=== PATIENT | female | born 1955 | race Caucasian/White ===

== ENCOUNTER 2021-06-18 08:43 | Outpatient (CLI) | payer MEDICARE, SELFPAY ==
--- NOTE | ~2021-06-18 | XR_ITS ---
XR ankle RT min 3V DATE: 06/18/2021 09:05 INDICATION: Posterior heel pain, bump TECHNIQUE: 3 views of right ankle COMPARISON: None FINDINGS: There is mild plantar and particularly prominent posterior calcaneal enthesopathy as well a s some calcifications of the distal Achilles tendon. There is overlying soft tissue swelling at the p osterior superior calcaneal area. No fracture or dislocation of the ankle or disruption of the ankle mortise. There is enthesopathy at the medial malleolus. No periosteal reaction or bone destruction is detected. IMPRESSION: Mild plantar and particularly prominent posterior calcaneal enthesopathy Distal Achilles tendon calcification and overlying soft tissue swelling, suggesting Achilles tendinit is Reviewed, dictated and finalized at location B. TIC ASSEMBLER IMPRESSION: Mild plantar and particularly prominent posterior calcaneal entheso terri Distal Achilles tendon calcification and overlying soft tissue swelling, sugges ting Achilles tendinitis
--- NOTE | ~2021-06-18 | XR_ITS ---
XR ankle LT min 3V DATE: 06/18/2021 09:05 INDICATION: Posterior heel pain TECHNIQUE: 3 views of left ankle COMPARISON: None FINDINGS: Mild plantar and very prominent posterior calcaneal enthesopathy. There is enthesopathy of the medial malleolus. No soft tissue swelling of the left ankle is evident. No left ankle fracture or dislocation or disrup tion of the left ankle mortise is noted. IMPRESSION: Plantar and particularly prominent posterior calcaneal enthesopathy Reviewed, dictated and finalized at location B. LESS SALES CONSULTANT
== END 2021-06-18 08:44 | disposition home or self-care (01) ==
LOC: CHSIMG 08:47
PROVIDERS: Visit Provider Orthopaedic Surgery
DX: M25.572 Pain in left ankle and joints of left foot (principal); M25.571 Pain in right ankle and joints of right foot
CPT/HCPCS: 73610

== ENCOUNTER 2021-07-03 02:00 | Outpatient (RCR) | payer MEDICARE, MEDICAID, SELFPAY ==
--- NOTE | 2021-07-03 15:11 | PTOPEVAL ---
Thank you for referring Lacy Toth to [facility].? The patient is scheduled to be seen for therapy? ____x/week for ___ weeks. Please review, sign, date and return this plan of care CAN. I agree with and certify that the following plan of care is medically necessary. Referring Physician Date Admitting Provider: Attending Provider: Stuart Mensah MD Referring Provider: *PT Outpatient Evaluation Start: 07/03/21 14:07 Freq: Status: Active Protocol: Document 07/03/21 14:07 ACR (Rec: 07/03/21 15:08 ACR [id number]) Therapy Assessment Status Assessment Status Assessment Status Evaluation Evaluation Information Problem Diagnosis plantar fascitis Onset 03/03/21 Subjective Information Patient states that she has Query Text:As Reported By Patient/ been dealing with plantar Family fascitis for about 3 years. She states that her most recent flare up was in February where she had a large knot. She states that she changed her diet and it has helped. She states that her doctor gave her exercises such as toe yoga, ankle ROM, gastroc stretching. She states that she has to do all of her stretches before she gets up because her feet are so painful. Patient states that walking, putting on shoes, driving for a period of time, steps ascending and descending , squatting, and getting on tip toes. She states that she has noticed that the outside of her shoes are worn and they use to never be like that. She has not been to therapy for this issue before just the exercises that the doctor gave her. Patient states that her goal for therapy is to walk without a limp Prior Level of Function Activity Level (Last 3 Months) Occupation retired Hand Dominance Right Activity of Daily Living Ability Independent Indoor/Home Mobility Independent Community Mobility Independent Stairs Ability Independent Functional Cognition (Planning, Shopping Independent , Taking M
--- NOTE | 2021-07-27 08:18 | PTOPEVAL ---
Thank you for referring Lacy Toth to [facility].? The patient is scheduled to be seen for therapy? ____x/week for ___ weeks. Please review, sign, date and return this plan of care CAN. I agree with and certify that the following plan of care is medically necessary. Referring Physician Date Admitting Provider: Attending Provider: Stuart Mensah MD Referring Provider: *PT Outpatient Evaluation Start: 07/03/21 14:07 Freq: Status: Active Protocol: Document 07/27/21 07:48 ACR (Rec: 07/27/21 08:16 ACR [id number]) Therapy Assessment Status Assessment Status Assessment Status Progress Evaluation Information Problem Diagnosis plantar fascitis Onset 03/03/21 Subjective Information Patient states that she is Query Text:As Reported By Patient/ doing a lot better since Family beginning therapy. She states she did a lot of walking yesterday and a lot of driving so her feet was so stiff, but once she did her stretches when she got home she felt fine. The patient believes the dry needling really helped her. Pain Assessment Timing of Pain Assessment Timing of Pain Assessment Pre-Treatment Pain Scale Pain Scale Used Numeric (1 - 10) Self Report Pain Assessment Left Foot/Feet Reported Pain Level 0 Greatest Pain Intensity 0 Right Foot/Feet Reported Pain Level 2 Greatest Pain Intensity 2 Pain Score Pain Score 0,2: Self Report Interventions Used Interventions Used By Clinicians Activity or ADL's,Electrical Stimulation,Exercise,Heat Lower Extremity Range of Motion Ankle/Foot Range of Motion Right Ankle Dorsiflexion With Knee Extension 2 Range of Motion - Active Ankle Plantarflexion Range of Motion - 50 Active Query Text: Gait Assessment Gait Assessment Additional Ambulation Comments Patient ambulates into the clinic with normal tennis shoes on. She ambulates with proper heel strike, but continues to have a quick heel off during mid stance due to lack of flexibility in the gastrocnemius. General Exercise General Exercises Exercise Description - slantboard stretch 1 minute Query Text:Record Sets, Reps, x 3 gastroc and soleus Resistance, and Position - tandem stance on foam x 2
--- NOTE | 2021-08-13 09:22 | PCPTNOTE ---
Mrs. Toth attended at total of 6 treatment sessions from 07/03/21 to 07/30/21. She has failed to return to the clinic. She will be discharged from our care at this time.
== END 2021-07-30 10:38 | disposition home or self-care (01) ==
LOC: CHSPT 02:00
PROVIDERS: Visit Provider Orthopaedic Surgery
DX: M76.62 Achilles tendinitis, left leg (principal); M76.61 Achilles tendinitis, right leg
CPT/HCPCS: 97014; 97110; 97140; 97161; G0283

== ENCOUNTER 2024-08-10 20:26 | Observation (INO) | payer MEDICARE, MEDICAID, SELFPAY ==
--- NOTE | ~2024-08-10 | CT_ITS ---
EXAMINATION: CTA chest PE protocol DATE: 08/11/2024 15:57 INDICATION: Hypoxia. Shortness of breath. TECHNIQUE: Computed tomography angiography (CTA) of the chest was performed with 100 mL Omnipaque-350 intravenous contrast timed to evaluate the pulmonary arteries. Coronal maximum intensity projection 3D-reconstructions were created by the technologist. Automated exposure control and iterative reconst ruction technique were employed. The dose-length product was 271.03 mGy-cm. COMPARISON: Chest single view 08/10/2024 FINDINGS: There are scattered areas of mild atelectasis in the lungs. There are scattered groundglass opacities in the lungs bilaterally. There are tree-in-bud opacities in right upper lobe. A calcified left lung nodule and calcified left hilar and mediastinal lymph nodes are consistent with old granul omatous disease. No pleural effusion. The heart size is normal. No pericardial effusion. There is mil d mediastinal lymphadenopathy, likely reactive. There is a 17 mm cyst in the liver. There is an 11 mm mass in left adrenal gland. There is no pulmonary embolus. There is a small sliding hiatal hernia. T here is mild thoracic spondylosis. IMPRESSION: 1. No pulmonary embolus. 2. Multifocal lung disease, consistent with pneumonia. 3. 11 mm mass in left adrenal gland. In the absence of known malignancy, this finding is likely an ad enoma. Reviewed, dictated and finalized at location A. CRIPTION CLERK IMPRESSION: 1. No pulmonary embolus. 2. Multifocal lung disease, consistent with pneumonia. 3. 11 mm mass in left adrenal gland. In the absence of known malignancy, this f inding is likely an adenoma.
--- NOTE | ~2024-08-10 | XR_ITS ---
CHEST RADIOGRAPH CLINICAL HISTORY: sob-low 02 stats . COMPARISON: None available TECHNIQUE: Single portable view of the chest. FINDINGS The cardiomediastinal silhouette is unremarkable. Alveolar infiltrates within the right upper left mid to lower lung field. The remainder of the lungs are clear. IMPRESSION: Multifocal infiltrates, as detailed above. Reviewed, dictated and finalized at location A. ERCIAL ESCROW OFFICER
--- OUTSIDE RECORDS SUMMARY | 2024-08-10 20:28 | XMS_ITS | Referral Summary ---
Author Organization [facility] Address [address] [place] [address] Care Team Providers Care Pushcart Peddler Name Role Phone Rosales Doe MD Unavailable [phone] Flaquito Simms MD Primary Care Provider [phone] Allergies Active Allergy Reactions Criticality Noted Date Comments Codeine Vomiting Low 03/19/2018 Penicillins Swelling Medium 03/19/2018 Hydrocodone-Acetaminophen Vomiting Low 03/19/2018 Medications acetaminophen 500 mg capsule Take 2 capsules (1,000 mg total) by mouth 3 (three) times a day as needed for pain or headaches. 30 tablet 03/20/2018 Active levothyroxine (SYNTHROID, LEVOTHROID) 200 mcg tablet Take 1 tablet (200 mcg total) by mouth eyedotter before breakfast. 30 tablet 03/21/2018 Active valsartan (DIOVAN) 80 mg tablet Take 1 tablet (80 mg total) by mouth daily 90 tablet 3 05/12/2020 Active sertraline (ZOLOFT) 50 mg tablet 10/07/2022 Active cholecalciferol 25 mcg (1,000 unit) tablet Take 1 tablet (1,000 Units total) by mouth daily Active Active Problems Problem Noted Date Diagnosed Date Primary hypertension 11/08/2022 Assessment & Plan (07/04/2023 11:07 AM PRODUCTION BORING MACHINE OPERATOR): Controlled with valsartan plus relaxation techniques. Check echo. Assessment & Plan (11/08/2022 11:11 AM CDT): Well controlled. Continue valsartan 80 mg daily. Chest pain 01/28/2020 Heart murmur 01/28/2020 Assessment & Plan (07/04/2023 11:06 AM PRODUCTION BORING MACHINE OPERATOR): Check echo. Assessment & Plan (11/08/2022 11:12 AM CDT): Echocardiogram in 2019 was normal. Murmur is unchanged. Continue to follow. Hypothyroidism 03/20/2018 Overview (03/20/2018): hypothyroidism Assessment & Plan (11/08/2022 11:12 AM CDT): Continue Synthroid. Altered mental status Immunizations Name Administration Dates Next Due Influenza, Quadrivalent, Spl it, Preservative Free, Intramuscular 03/20/2018 Social History Tobacco Use Types Packs/Day Years Used Date Smoking Tobacco: Every Day Cigarettes 0.5 42 Alcohol Use Standard Drinks/Week Comments No 0 (1 standard drink = 0.6 oz pur e alcohol) Personal Safety Answer Date Recorded Getting School Help Needed Not on file 06/12 Comments Unknown Sex and Gender Information Value Date Recorded Sex Assigned at Not on file Legal Sex Female 6:03 AM PRODUCTION BORING MACHINE OPERATOR Gender Identity Not on file Sexual Orientation Not on file Last Filed Vital Signs Vital Sign Reading Time Taken Comments Blood Pressure 124/72 07/04/2023 10:21 AM PRODUCTION BORING MACHINE OPERATOR Large Adult Cuff Pulse 74 07/04/2023 10:21 AM PRODUCTION BORING MACHINE OPERATOR Temperature 36.9 C (98.5 F) 02/11/2020 9:27 AM CDT Respiratory Rate 16 07/04/2023 10:2 1 AM PRODUCTION BORING MACHINE OPERATOR Oxygen Saturation 89% 07/04/2023 10: 21 AM PRODUCTION BORING MACHINE OPERATOR Inhaled Oxygen Concentration - - Weight 84.9 kg (187 lb 3.2 oz) 07/04/2023 10:21 AM PRODUCTION BORING MACHINE OPERATOR Height 163.2 cm (5' 4.25 ) 07/04/2023 1 0:21 AM PRODUCTION BORING MACHINE OPERATOR Body Mass Index 31.88 07/04/2023 10:21 AM PRODUCTION BORING MACHINE OPERATOR Plan of Treatment Not on file Insurance MEDICARE SOLUTIONS [facility] ADVANTRA Advance Directives For more information, please contact: [phone] * Full Code (Latest Code Status on File) Date Activated Date Inactivated Comments 03/20/2018 1:18 AM 03/20/2018 2:02 PM Care Teams Pushcart Peddler Relationship Specialty [place] [id number] [facility] [address] [place] [address] PCP - General Cardiology 07/30/21 [place] [address] [facility] [address] [place] [address] Consulting Physician Endocrinology Diabetes & Metabolism 03/20/18
--- OUTSIDE RECORDS SUMMARY | 2024-08-10 20:28 | XMS_ITS ---
Author Name Maeve Benitez Address [address] [facility], Address [address] [address] Care Team Providers Care Mannequin Refinisher Name Role Phone Emmaneul Maeve Primary Care Physician Unavailab le Maeve Benitez Preferred Provider Unavailable Plan of Treatment Planned Activity Comments Planned Date Planned Time Plan /Goal PTH w/o calcium 09/28/2021 12:00 AM CBC 09/28/2021 12:00 AM CMP 09/28/2021 12:00 AM Vitamin D (calcidiol) 09/28/2021 12:00 AM VICENTE w/ creatinine 09/28/2021 12:00 AM VICENTE w/ creatinine 09/28/2021 12:00 AM Lipid panel 09/28/2021 12:00 AM TSH 09/28/2021 12:00 AM Vitamin B12 09/28/2021 12:00 AM BNP (brain natriuretic pepti de measurement) 09/28/2021 12:00 AM Medications Active Name Start Date Estimated Comple tion Date SIG Comments diclofenac 1 % topical gel 05/30/2021 apply 2 grams to the affected area(s) by topical route up to 4 times per day Name Start Date Expiration Date SIG Comments levothyroxine 175 mcg capsule 05/30/2021 05/25/2022 take 1 capsule (175 mcg) by oral route once daily on an empty stomach 30 minutes before breakfast valsartan 80 mg tablet 05/30/2021 05/25/2022 take 1 tablet (80 mg) by oral route once daily cefdinir 300 mg capsule 08/10/2021 08/17/2021 take 1 capsule (300 mg) by oral route every 12 hours for 7 days Problem List Description Status Onset Osteoarthritis, multiple sites Active 1 06/30/2020 HTN (hypertension) Active 04/30/2021 Hypothyroid Active 04/30/2021 Cardiac murmur Active 04/30/2021 Post herpetic neuralgia Active History of diverticulitis Active 021 Tobacco use disorder Active 04/30/2021 Overweight (BMI 25.0-29.9) Active 2020 Encounter for annual general medical examination with abnormal findings in adult Active 05/30/2021 Pain of right heel Active 05/30/2021 Rheumatoid arthritis Active 05/30/2021 Pulmonary hypertension Active 05/30/2021 Vital Signs Date Time BP-Sys(mm[Hg] BP-Felicia(mm[Hg]) HR(bpm) RR(rpm) Temp WT HT HC BMI BSA BMI Percentile O2 Sat(%) 2020 12:54 :00 PM 133 mm[Hg] 68 mm[Hg] 81 {beats}/ min 18 rpm 98.09 6 F 170 .12 8 lbs 64. 016 in 29.1 877 kg/m 2 1.86 69 m2 97 % 2020 10:12 :00 AM 128 mm[Hg] 78 mm[Hg] 67 {beats}/ min 18 rpm 98.45 6 F 172 .50 3 lbs 64. 016 in 29.6 0 kg/m 2 1.88 m2 98 % Social History Name Description Comments Marital Status: Lives Alone Ambulatory Status: Other Work: Retired Education: Some Alcohol Current some day 1 glass of win once a week Tobacco Current every day smoker Marijuana Light Edibles only History of Procedures Date Ordered Description Order Status 04/30/2021 12:00 AM X-RAY EXAM OF FOOT Reviewed 04/30/2021 12:00 AM FLU VACC PRSV FREE INC ANTIG Reviewed 04/30/2021 12:00 AM Administration of in fluenza vaccine in Medicare patient Reviewed 04/30/2021 12:00 AM ROUTINE VENIPUNCTURE Reviewed 05/30/2021 12:00 AM DXA BONE DENSITY AXIAL Review ed 05/30/2021 12:00 AM PNEUMOCOCCAL VACC 23 JULIO IM R eviewed 05/30/2021 12:00 AM Vaccine Administration Fee - Medicare Pneumonia Reviewed 05/30/2021 12:00 AM BREATHING CAPACITY TEST Revie wed 05/30/2021 12:00 AM Annual Visit (G0439) Reviewed 05/30/2021 12:00 AM COMPLETE CBC AUTOMATED Review ed 05/30/2021 12:00 AM COMPREHEN METABOLIC PANEL Rev iewed 05/30/2021 12:00 AM ASSAY OF FREE THYROXINE Revie wed 05/30/2021 12:00 AM ASSAY THYROID STIM HORMONE Re viewed 05/30/2021 12:00 AM LIPID PANEL Reviewed 05/30/2021 12:00 AM RHEUMATOID FACTOR QUANT Revie fri05/30/2021 12:00 AM CCP ANTIBODY Reviewed Results Summary Date and Description Results 04/30/2021 10:19 AM Pack Years 8.0 04/30/2021 10:20 AM Pack Years 8.0 04/30/2021 10:21 AM BP Monitor @home Yes 04/30/2021 10:24 AM AUDIT - C 1Marijuana Use 2Drug Use/Rx Abuse 1 04/30/2021 10:24 AM AUDIT - C 1Marijuana Use 2Drug Use/Rx Abuse 1 04/30/2021 10:25 AM SDOH - Housing Heike rns NoSDOH - Food Access Concerns (Run Out of Food Now) NoSDOH - Food Access Concerns (Ran Out of Food in Last 2 Months) NoSDOH - Medication Assistance NoSDOH - Health Literacy NoSDOH - Loneliness Score 3 04/30/2021 10:25 AM PHQ-2 0 04/30/2021 10:48 AM Hgb A1c Fr Bld 5.60 % 05/30/2021 1:05 PM Pain Scale 5 05/30/2021 1:07 PM VES - 13 2 05/30/2021 1:08 PM BP Monitor @home Yes 05/30/2021 1:09 PM Mini - Cog 5 05/30/2021 1:15 PM Mini - Cog 5 05/30/2021 1:26 PM QuantaFlo Left Foot 1.20 UnitsQuantaFlo Right Foot 1.170 UnitsQuantFlo result Normal 05/30/2021 4:43 PM FEV1 1.510 LFVC 2.07 0 LFEV1/FVC % 72.80 %{total}Spirometry session quality ASpirometry completed Yes 12/26/2021 3:35 PM Colonoscopy: Result: Normal History Of Immunizations Name Date Admin Mfg Name Mfg Code Trade Name Lot# Route Inj Vis Given Vis Pub CVX Influenza 04/30/20 21 sanofi pasteur PMC FLUZONE-HIG H DOSE [id number] AA Intramuscular Right Deltoid 021 2020 197 View Only Pfiz COVID 1 Not Entered NE Not Entered Not Entered Not Entered 2020 208 View Only Pfiz COVID 1 Not Entered NE Not Entered Not Entered Not Entered 2020 208 Pneumovax 05/30/20 21 [employer] MSD PNEUMOVAX 23 [id number] 33 Intramuscular Left Arm 021 10/21 5 33 History of Past Illness Name Date of Onset Comments Osteoarthritis, multiple sites 04/30/2021 HTN (hypertension) 04/30/2021 04/30/2021- B P 128/78 - Controlled- Continue Valsartan- CTM Hypothyroid 04/30/2021 04/30/2021- Cont rolled.- Continue Synthroid- Repeat labs at next visit- CTM Cardiac murmur 04/30/2021 04/30/2021- Pt r eports life-long murmur- We will obtain echocardiogram from 1.5 years ago- Will follow-up at next visit- CTM Post herpetic neuralgia 04/30/2021 04/30/20 21- Continued facial symptoms- Pt declines any medications- Seeing ophthalmology for continued surveillance- CTM History of diverticulitis 04/30/20212020- Episode in 2019- Needs f/u c-scope scheduled- Will follow-up at future visits- CTM Tobacco use disorder 04/30/2021 04/30/2021- Will adjust readiness for cessation at future visits Overweight (BMI 25.0-29.9) 04/30/202104/30- BMI 29.60- Wt 172 lbs- Will encourage diet and exercise- CTM Encounter for annual general medical examination with abnormal findings in adult 05/30/2021 Pain of right heel 05/30/2021 05/30/2021 -a cute -bony enlargement observed to medial R heel, accompanied by soft tissue swelling -will start diclofenac -XR of R foot ordered- will f/u at next appointment Rheumatoid arthritis 05/30/2021 05/30/2021 - arthritis likely OA, but will r/o w/ rheumatoid factor and anti-ccp today. - pt doesn't like to take immunosuppressive medications - will f/u at next appointment. Pulmonary hypertension 05/30/2021 -Per echo 02/08/20 estimated PA pressure 26 - will continue to monitor and f/u at next appt Flu Vaccine (Fluzone High Dose) Apr 30 2021 10:28 AM Osteoarthritis, multiple sites Apr 30 2021 10:28A M HTN (hypertension) Apr 30 2021 10:28AM Hypothyroid Apr 30 2021 10:28AM Cardiac murmur Apr 30 2021 10:28AM Post herpetic neuralgia Apr 30 2021 10:28AM History of diverticulitis Apr 30 2021 10:28AM Tobacco use disorder Apr 30 2021 10:28AM Osteoarthritis Apr 30 2021 12:59PM Overweight (BMI 25.0-29.9) Apr 30 2021 10:28AM DEXA (postmenopausal state) May 30 2021 1:56PM Encounter for annual general medical examination with abnormal findings in adult May 30 2021 1:16PM HTN (hypertension) May 30 2021 1:16PM Hypothyroid May 30 2021 1:16PM Osteoarthritis, multiple sites May 30 2021 1:16PM Pain of right heel May 30 2021 1:16PM Rheumatoid arthritis May 30 2021 1:16PM Pulmonary hypertension May 30 2021 1:16PM Pneumovax May 30 2021 2:41PM Asthma in adult, unspecified asthma severity, uncomplicated May 30 2021 4:38PM Intermittent asthma May 30 2021 4:38PM COPD (chronic obstructive pulmonary disease) May 30 2021 4:38PM URI (upper respiratory infection) Aug 10 2021 10:26AM Hypothyroid Sep 28 2021 8:16AM Rheumatoid arthritis Sep 28 2021 8:16AM Encounter for drug therapy Sep 28 2021 8:16AM Payers Insurance Name Company Name Plan Name Plan Number Policy Number Policy Group Number Start Date AETNA - [id number] AetnaMediPremi erPPO-CAP [id number] N/A Dual/Rev Cycle Use Only Dual/Rev Cycle Use Only Dual [id number] N/A Medicare - [place] Medicare Part B - [facility] [id number] N/A YUSUF Financial Assistance 100 [id number] Friday, 2021 [facility] ([facility]) - [id number] UHCAdvnt PPO JAIMIE Scott [id number] N/A Medicaid - [place] Medicaid - [facility] [id number] N/A History of Encounters Visit Date Visit Type Provider 05/30/2021 In Office Visit Saul lim MD 04/30/2021 In Office Visit Saul lim MD
--- OUTSIDE RECORDS SUMMARY | 2024-08-10 20:28 | XMS_ITS | Continuity of Care Document ---
Author Organization [facility] Address [address] [facility] [address] [place] [address] Phone Care Team Providers Care Contour Path Tape Mill Operator Name Role Phone Anastasia Pop Unavailable Unavailable Advance Directives Directive Yes / No Effective Date File Name No Information Encounters Encounter Description Practice Location Reason(s) For Visit Diagnoses Date Provider Providers Copied on Encounter [facility], [address], [place], [place], [id number], [place] tel:[phone] [facility] No Information [address]. [address] [facility] , [address], [place], [address], [place]. tel:[phone] Family History Family Member Type Diagnosis Age At Onset No Information Payers Payer name Insurance type Covered democrat ID Authoriza tiananya(s) [employer] SOI CI [id number] Social History Type Description Quantity Date Captured Comments Sex Female Smoking Status No Information Chief Complaint And Reason For Visit No Information Reason For Referral Reason For Referral No Information History Of Present Illness Encounter Date Complaint History Of Prese nt Illness No Information Functional Status Date Functional Assessmen t No Information Instructions Date Instruction Additional Infor mation No Information Assessments Type Assessment Date No Information Patient Care Teams Name Effective Dates (start - stop) Status Members No Information
--- OUTSIDE RECORDS SUMMARY | 2024-08-10 20:28 | XMS_ITS | CONTINUITY OF CARE DOCUMENT ---
Author Name [place] Address Unknown Organization [facility] Address [address] [place] [address] Phone [phone] Care Team Providers Care Annual Campaign Manager Name Role Phone Shelly Jain MD Unavailable PROBLEMS Condition Status Date Provider Notes Hypothyroidism active Shelly Jain MD Hypercholesterolemia active Shelly Jain MD Chest pain, atypical active Shelly Jain MD Family History of CVA or Stroke: completed - M terry Jain MD HTN essential active Shelly Jain MD Anxiety active Shelly Jain MD Tobacco abuse active Shelly Jain MD Palpitations active Shelly Jain MD ENCOUNTERS Date Type Provider Location Encounter Diag nosis - In-person encounter Office Visit [facility] Family History of CVA or Stroke:Tobacco abusePalpitations - In-person encounter Office Visit [facility] HypothyroidismHypercholesterolemiaChest pain, atypicalHTN essentialAnxiety VITAL SIGNS Date Observation Value Provider Body Mass Index (Ratio) 28.83 kg/m2 Patricio Jain MD blood pressure, diastolic 74 mm[Hg] Dav Jain MD blood pressure, systolic 120 mm[Hg] Elsa Jain MD pulse rate 76 /min Shelly Jain MD oxygen saturation, oximetry 97 % Shelly Jain MD respiratory rate E&M 16 /min Greg Jain MD weight E&M 168 [lb_av] Shelly Jain MD blood pressure, diastolic 70 mm[Hg] Dav Jain MD blood pressure, systolic 120 mm[Hg] Elsa Jain MD Body Mass Index (Ratio) 29.52 kg/m2 Patricio Jain MD pulse rate 74 /min Shelly Jain MD respiratory rate E&M 16 /min Greg Jain MD oxygen saturation, oximetry 94 % Shelly Jain MD weight E&M 172 [lb_av] Shelly Jain MD height E&M 64 [in_i] Shelly Jain MD ALLERGIES Allergy Name Onset Date Reaction Criticality Status PCN High Criticality active CODEINE High Criticality active HISTORY OF MEDICATION USE Medication Status Instructions Dates Provider Indications Com ments LIPITOR 10 MG ORAL TABLET active ONE TAB. DAILY Shelly Jain MD RANITIDINE HCL 150 MG ORAL TABLET active 1 tablet daily Shelly Jain MD CELEBREX 200 MG ORAL CAPSULE active 1 capsule daily Shelly Jain MD HYDROCHLOROTHIAZIDE 12.5 MG ORAL CAPSULE active ONE TAB. DAILY Shelly Jain MD CITALOPRAM HYDROBROMIDE 20 MG ORAL TABLET active 1 tablet daily Shelly Jain MD SYNTHROID 175 MCG ORAL TABLET active ONE TAB. 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 P atient has been counseled to quit. 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 E xercise: Yes - Rides bike 3 times a week A lcohol: Yes - win about 2-3 glasses per month Shelly Jain MD smoking, date started 2008 Toribio Jain MD social history reviewed E&M revi ewed - no changes required Shelly Jain MD smoking history, tot al pack/day 0.25 Shelly Jain MD smoking/tobacco cess ation, patient education and counseling yes Shelly Jain MD cigarette use yes Shelly Jain MD smoking status Current every day smoker M terry Jain MD FAMILY HISTORY Family Member Condition Mother Family History of CV A or Stroke: Father Family History of CV A or Stroke: INSURANCE PROVIDERS Payer name Policy type / Coverage type [facility] Medicaid 1 [id number] TREATMENT PLAN Date Name Performer : H er updated medication list for this problem includes: Synthroid 175 Mcg Tabs (Levothyroxine sodium) ..... One tab. daily Orders: S TR - Nuclear ([id number]) C omplete Echo (CPT-61582) Shu Villalpando : O rders: S TR - Nuclear ([id number]) C omplete Echo (CPT-[id number]) Shu Villalpando : H er updated medication list for this problem includes: Lipitor 10 Mg Tabs (Atorvastatin calcium) ..... One tab. daily Orders: S TR - Nuclear ([id number]) C omplete Echo (CPT-[id number]) Shu Villalpando : O rders: S TR - Nuclear ([id number]) C omplete Echo (CPT-[id number]) Shu Kwasi : O rders: S TR - Nuclear ([id number]) C omplete Echo (CPT-[id number]) Shu Villalpando : H er updated medication list for this problem includes: Hydrochlorothiazide 12.5 Mg Caps (Hydrochlorothiazide) ..... One tab. daily Orders: S TR - Nuclear ([id number]) C omplete Echo (CPT-[id number]) BP today: 120/74 P rior BP: 120/70 (05/03/2014) Shu Kwasi : H er updated medication list for this problem includes: Synthroid 175 Mcg Tabs (Levothyroxine sodium) ..... One tab. daily Orders: E KG ([id number]) Shelly Jain MD : H er updated medication list for this problem includes: Synthroid 175 Mcg Tabs (Levothyroxine sodium) ..... One tab. daily Orders: E KG (CPT-[id number]) Shelly Jain MD Shelly Monte : H er updated medication list for this problem includes: Hydrochlorothiazide 12.5 Mg Caps (Hydrochlorothiazide) ..... One tab. daily Orders: E KG (CPT-[id number]) Shelly Jain MD Date Name Complete Echo STR - Nuclear HISTORY OF PROCEDURES Procedure Date Procedure Name Provider Procedure Notes S tatus EKG Shelly Jain MD complet ed
--- OUTSIDE RECORDS SUMMARY | 2024-08-10 20:28 | XMS_ITS | Clinical Summary ---
Author Organization [facility] Address [address] [place] [address] Care Team Providers Care Middle School Tutor Name Role Phone Rosales Doe MD Unavailable [phone] Flaquito Simms MD Primary Care Provider [phone] Allergies Active Allergy Reactions Criticality Noted Date Comments Codeine Vomiting Low 03/19/2018 Penicillins Swelling Medium 03/19/2018 Hydrocodone-Acetaminophen Vomiting Low 03/19/2018 Medications acetaminophen 500 mg capsule Take 2 capsules (1,000 mg total) by mouth 3 (three) times a day as needed for pain or headaches. 30 tablet 03/20/2018 Active levothyroxine (SYNTHROID, LEVOTHROID) 200 mcg tablet Take 1 tablet (200 mcg total) by mouth radio mechanic helper before breakfast. 30 tablet 03/21/2018 Active valsartan [...] 11/08/2022 Assessment & Plan (07/04/2023 11:07 AM TAPE CUTTING MACHINE OPERATOR): Controlled with valsartan plus relaxation techniques. Check echo. Assessment & Plan (11/08/2022 11:11 AM CDT): Well controlled. Continue valsartan 80 mg daily. Chest pain 01/28/2020 Heart murmur 01/28/2020 Assessment & Plan (07/04/2023 11:06 AM TAPE CUTTING MACHINE OPERATOR): Check echo. Assessment & Plan (11/08/2022 11:12 AM CDT): Echocardiogram in 2019 was normal. Murmur is unchanged. Continue to follow. Hypothyroidism 03/20/2018 Overview (03/20/2018): hypothyroidism Assessment & Plan (11/08/2022 11:12 AM CDT): Continue Synthroid. Altered mental status Immunizations Name Administration Dates Next Due Influenza, Quadrivalent, Spl it, Preservative Free, Intramuscular 03/20/2018 Medical History Medical History Date Comments Thyroid disease hypothyroidism Family History Medical History Relation Name Comments Heart failure Father Diabetes Mother Heart disease Mother Thyroid disease Mother Diabetes Sister 1 Xenia Heart attack Sister 1 Xenia No Known Problems Sister 2 Oldest Diabetes Sister 3 Cee Osteoporosis Sister 3 Cee Relation Name Status Comments Father Mother Sister 1 Xenia Alive Sister 2 Oldest Alive Sister 3 Cee Alive Social History Tobacco Use Types Packs/Day Years [...] on file Legal Sex Female 6:03 AM TAPE CUTTING MACHINE OPERATOR Gender Identity Not on file Sexual Orientation Not on file Obstetrics History Last Filed Vital Signs Vital Sign Reading Time Taken Comments Blood Pressure 124/72 07/04/2023 10:21 AM TAPE CUTTING MACHINE OPERATOR Large Adult Cuff Pulse 74 07/04/2023 10:21 AM TAPE CUTTING MACHINE OPERATOR Temperature 36.9 C (98.5 F) 02/11/2020 9:27 AM CDT Respiratory Rate 16 07/04/2023 10:2 1 AM TAPE CUTTING MACHINE OPERATOR Oxygen Saturation 89% 07/04/2023 10: 21 AM TAPE CUTTING MACHINE OPERATOR Inhaled Oxygen Concentration - - Weight 84.9 kg (187 lb 3.2 oz) 07/04/2023 10:21 AM TAPE CUTTING MACHINE OPERATOR Height 163.2 cm (5' 4.25 ) 07/04/2023 1 0:21 AM TAPE CUTTING MACHINE OPERATOR Body Mass Index 31.88 07/04/2023 10:21 AM TAPE CUTTING MACHINE OPERATOR Plan of Treatment Health Maintenance Due Date Last Done Comments Breast Cancer Screening-Mammogram 1955 Colon Cancer Screening-Colonoscopy 1955 Depression Screening 1955 Fall Risk Assessment 1955 Hepatitis C Screening 1955 Osteoporosis Screening-Bone Density Scan 1955 Pneumococcal vaccine 65+ (1 of 2 - PCV) 1961 DTaP/Tdap/Td Vaccine (1 - Tdap) 1966 Hepatitis B Screening 1973 Well Visit 65+ 2020 Zoster Vaccine (2 of 2) 07/09/2021 05/14/2021 Covid-19 Vaccine (3 - season) 02/29/202402/2021, 09/04/2020 Influenza Vaccine (#1) 2024 03/20/2018 Insurance MEDICARE [facility] Address: [facility] [address] [place] [address] [facility] AETNA [facility] [employer] Advance Directives For more information, please contact: [phone] * Full Code (Latest Code Status on File) Date Activated Date Inactivated Comments 03/20/2018 1:18 AM 03/20/2018 2:02 PM Care Teams Middle School Tutor Relationship Specialty [place] [id number] [address] [address] PCP - General Cardiology 07/30/21 [place] [address] [address] [address] Consulting Physician Endocrinology Diabetes & Metabolism 03/20/18
--- OUTSIDE RECORDS SUMMARY | 2024-08-10 20:28 | XMS_ITS | Clinical Summary ---
Author Organization [facility] Address [address] [place] [address] Care Team Providers Care Mental Health Aide Name Role Phone Jame Walden MD Primary Care Provider [phone] Allergies Active Allergy Reactions Criticality Noted Date Comments Banana Swelling 04/21/2020 Codeine Rash Low 04/14/2020 Penicillins Rash Low 04/14/2020 Medications levothyroxine (SYNTHROID) 175 MCG tablet Active vitamin D2, ergocalciferol, [address] UNITS capsule Take 50,000 Units by mouth every 7 days. Active traMADol 50 MG tabletIndication s:Acute Pain < 7 Day Supply Indications : Acute Pain < 7 Day Supply 1-2 every 6 hours as needed for pain 20 tablet 04/21/2020 Active HYDROcodone-acet aminophen 5-325 MG tabletIndication s:Acute Pain < 7 Day Supply Take 1 tablet by mouth every 6 (six) hours as needed. Indications : Acute Pain < 7 Day Supply 10 tablet 06/27/2020 Active valsartan (DIOVAN) 40 MG tablet Take 40 mg by mouth daily. Active Active Problems No known active problems Encounters Date Type Department Care Team Description 07/28/2024 10:44 AM STOVE POLISHER - 07/28/2024 11:59 PM STOVE POLISHER Hospital Encounter [facility] [address] [place] [address] Ying Hale NP Discharge Disposition: Home or Self Care (Routine Discharge) 07/28/2024 Travel from Last 3 Months Social History Tobacco Use Types Packs/Day Years Used Date Smoking Tobacco: Every Day Cigarettes Smokeless Tobacco: Never Alcohol Use Standard Drinks/Week Comments Never 0 (1 standard drink = 0.6 oz pur e alcohol) AUDIT-C Answer Date Recorded Q1: How often do you have a drink containing alc ohol? Never 04/21/2020 Average Number of Drinks Not on file 020 Frequency of Binge Drinking Not on file 03/31 Comments No Sex and Gender Information Value Date Recorded Sex Assigned at Female 07/28/2024 10:43 AM STOVE POLISHER Legal Sex Female 8:50 PM CDT Gender Identity Not on file Sexual Orientation Not on file Last Filed Vital Signs Vital Sign Reading Time Taken Comments Blood Pressure 126/64 02/17/2022 4:00 AM CDT Pulse 78 02/17/2022 4:15 AM CDT Temperature 36.3 C (97.3 F) 02/17/2022 12:49 AM CDT Respiratory Rate 23 02/17/2022 4:15 AM CDT Oxygen Saturation 97% 02/17/2022 4:15 AM CDT Inhaled Oxygen Concentration - - Weight 86.6 kg (191 lb) 02/17/2022 12:49 AM CDT Height 162.6 cm (5' 4 ) 02/17/2022 12:49 AM CDT Body Mass Index 32.79 02/17/2022 12:49 AM CDT Plan of Treatment Upcoming Encounters Date Type Department Care Team (Late st Contact Info) Description 08/12/2024 6:30 AM STOVE POLISHER Appointment [facility] [address] [place] [address] Ying Hale, HUYEN [address] [place] [address] [phone] Health Maintenance Due Date Last Done Comments ASCVD LDL 1955 ASCVD Statin 1955 Colorectal Cancer Screening Colonoscopy (10 Years) 1955 Pneumococcal Vaccine: 65+ Years (1 of 2 - PCV) 1961 Hepatitis C 1973 DTaP, Tdap and Td Vaccines ( 1 - Tdap) 1974 Zoster Vaccines (1 of 2) 2005 RSV Immunization or 60+ Years (1 - Risk 60-74 years 1-dose series) 2015 Annual Medicare Wellness Visit 2020 COVID-19 Vaccine (3 - 2023-2 5 season) 2024 10/06/2020, 09/04/2020 Influenza Adult (#1) 2024 03/20/2018 Mammogram Screening 07/28/2026 07/28/2024, 06/25/2022, 01/11/2021 Dexa Scan (General) Completed 07/28/2024, 06/25/2022 Meningococcal B Vaccine Aged Out No l onger eligible based on patient's age to complete this topic Meningococcal Vaccine Aged Out No mari obed eligible based on patient's age to complete this topic RSV Immunizations Under 20 Months Aged Out No longer eligible b ased on patient's age to complete this topic Procedures Procedure Name Priority Date/Time Associated Diagnosis Comments MG SCREENING W JO VIOLA DIGI Routine 07/28/2024 12:23 PM STOVE POLISHER Encounter for screening mammogram for malignant neoplasm of breast BONE DENSITY/DEXA Routine 07/28/2024 11: 32 AM STOVE POLISHER Post-menopausal from Last 3 Months Results * MG SCREENING W JO VIOLA DIGI (07/28/2024 12:23 PM STOVE POLISHER) Anatomical Region Laterality Modality Breast Bilateral Mammography 07/28/2024 11:4 9 AM STOVE POLISHER Impressions 07/28/2024 11:49 AM STOVE POLISHER IMPRESSION: No suspicious change since the previous exams. Recommendation: 1: Routine Screening Bilateral in 1 Year Assessment: ACR BI-RADS 2 - BENIGN FINDING(S) Ordered By: YING HALE Interpreted By: Willy Mosley MD, 07/28/2024 11:49 AM Narrative 07/28/2024 11:49 AM STOVE POLISHER [address] [place] [address] Examination: Digital screening mammogram with CAD. Clinical history: Asymptomatic patient presents for routine screening. Comparison: 06/25/2022, 01/11/2021, 06/14/2015. Technique: Bilateral digital mammograms. The exam was interpreted with the use of a computer-aided detection (CAD) system. Additional 3-D tomosynthesis images were acquired. Tissue density: There are scattered areas of fibroglandular density. Findings: The breast tissue contains scattered fibroglandular densities. Benign-appearing calcification noted. No suspicious mass, microcalcification or area of architectural distortion can be identified. From a mammographic standpoint, routine followup in one year would seem adequate. us Ying Hale IP LITIGATION PARALEGAL MAMMO Fin al Result * BONE DENSITY/DEXA (07/28/2024 11:32 AM STOVE POLISHER) Anatomical Region Laterality Modality Bone Bone Density 07/28/2024 8:36 PM STOVE POLISHER Impressions 07/28/2024 8:40 PM STOVE POLISHER Impression: Osteopenia in both hips in normal measurements in the lumbar spine. 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 Rheumatoid arthritis. History of smoking. Technique: DEXA bone minimal density evaluation was performed in the AP projection over the lumbar spine and over both hips in the AP projection utilizing standard imaging techniques. Assessment: The BMD measured at the AP spine L1-L4 is 1.01 g/cm2 with a T-score of -0.3 and a Z-Score of 1.8. Bone density is up to 10% below young normal. This patient is considered normal according to the World Health Organization (WHO) criteria. Fracture risk is low. Compared to the study from 2021 there is 7.5% improvement. The BMD measured at the femur total left is 0.86 g/cm2 with a T-score of -0.6 and a Z-Score of 0.8. The patient is considered osteopenic according to World Health Organization (WHO) criteria. Bone density is between 10 and 25% below young normal. Fracture risk is moderate. Treatment is advised. In the neck bone mineral density is 0.63 with a T score of -1.9 and Z score of -0.2 consistent with osteopenia. There is 3.3% worsening compared to 2022. Over the next 10 years there is 15% risk for major osteoporotic fracture and 4.2% risk for hip fracture. The BMD measured at the femur total right is 0.78 g/cm2 with a T-score of -1.3 and aZ-Score of 0.1. The patient is considered osteopenic according to World Health Organization (WHO) criteria. Bone density is between 10 and 25% below young normal. Fracture risk is moderate. Treatment is advised. In the neck bone mineral density is 0.64 with a T score of -1.8 and Z score of -0.1 consistent with osteopenia. There is 3.5% worsening compared to prior study. Over the next 10 years there is 13% risk for major osteoporotic fracture and 3.5% risk for hip fracture. Recommendations: All patients should ensure an adequate intake of dietary calcium and vitamin D. The NOF recommend adults under the age of 50 need 1000 mg of calcium and 400-800 IU of vitamin D daily. Effective therapy for the prevention and treatment of osteoporosis include biphosphonates. Follow-up: People with diagnosed cases of osteoporosis or at high risk for fracture should have regular bone mineral density test. For patients eligible for Medicare, routine testing is allowed once every 2 years. Testing frequency can be increased to one year for patients who have rapidly progressing disease, those who are receiving or discontinuing medical therapy to restore bone mass, or have additional risk factors. Based on these results, a followup exam is recommended in one to 2 years along with treatment because of osteopenia. Procedure Note Corby Chamberlain MD - 07/28/[address] [place] [address] 07/28/2024 Examination: DEXA Bone densitometry Clinical history: 69-year-old female who has secondary osteoporosis.Rheumatoid arthritis. History of smoking. Technique: DEXA bone minimal density evaluation was performed in the APprojection over the lumbar spine and over both hips in the AP projectionutilizing standard imaging techniques. Assessment: The BMD measured at the AP spine L1-L4 is 1.01 g/cm2 with a T-score of-0.3 and a Z-Score of 1.8. Bone density is up to 10% below youngnormal. This patient is considered normal according to the World HealthOrganization (WHO) criteria. Fracture risk is low. Compared to the studyfrom 2021 there is 7.5% improvement. The BMD measured at the femur total left is 0.86 g/cm2 with a T-score of-0.6 and a Z-Score of 0.8. The patient is considered osteopenicaccording to World Health Organization (WHO) criteria. Bone density isbetween 10 and 25% below young normal. Fracture risk is moderate.Treatment is advised. In the neck bone mineral density is 0.63 with a Tscore of -1.9 and Z score of -0.2 consistent with osteopenia. There is3.3% worsening compared to 2021. Over the next 10 years there is 15% risk for major osteoporotic fractureand 4.2% risk for hip fracture. The BMD measured at the femur total right is 0.78 g/cm2 with a T-score of-1.3 and aZ-Score of 0.1. The patient is considered osteopenicaccording to World Health Organization (WHO) criteria. Bone density isbetween 10 and 25% below young normal. Fracture risk is moderate.Treatment is advised. In the neck bone mineral density is 0.64 with a Tscore of -1.8 and Z score of -0.1 consistent with osteopenia. There is3.5% worsening compared to prior study. Over the next 10 years there is 13% risk for major osteoporotic fractureand 3.5% risk for hip fracture. Recommendations: All patients should ensure an adequate intake of dietary calcium andvitamin D. The NOF recommend adults under the age of 50 need 1000 mg ofcalcium and 400-800 IU of vitamin D daily. Effective therapy for theprevention and treatment of osteoporosis include biphosphonates. Follow-up: People with diagnosed cases of osteoporosis or at high risk for fractureshould have regular bone mineral density test. For patients eligible forMedicare, routine testing is allowed once every 2 years. Testing frequencycan be increased to one year for patients who have rapidly progressingdisease, those who are receiving or discontinuing medical therapy torestore bone mass, or have additional risk factors. Based on these results, a followup exam is recommended in one to 2 yearsalong with treatment because of osteopenia. Impression: Osteopenia in both hips in normal measurements in the lumbar spine. Ordered By: YING HALE Interpreted By: Corby Chamberlain MD, 07/28/2024 8:36 PM us Ying Hale IP LITIGATION PARALEGAL DEXA Fin al Result from Last 3 Months Insurance MEDICAID AETNA Care Teams Mental Health Aide Relationship Specialty Start Date End Date Jame Walden MD [address] [place] [address] PCP - General FAMILY PRACTICE 08/19/23
--- NOTE | 2024-08-10 20:30 | ED.SOB ---
HPI - SOB/Dyspnea General Chief Complaint: Shortness of Breath/Dyspnea Stated Complaint: SOB Time Seen by Provider: 08/10/24 20:29 Source: patient Mode of arrival: ambulatory Limitations: no limitations History of Present Illness HPI Narrative: 69 years old white female came to the ED by private car because of shortness of breath and productive cough of yellow sputum for the last 3 days. History of hypertension and tobacco dependent and hypothyroidism. She denies any chest pain. Patient is not on any oxygen at home. Related Data Home Medications ?Medication ?Instructions ?Recorded ?Confirmed ?Last Taken ?Type ergocalciferol (vitamin D2) 1,250 50,000 unit PO MONTHLY 05/11/20 08/10/24 Unknown History mcg (50,000 unit) capsule levothyroxine 175 mcg tablet 175 mcg PO DAILY 05/11/20 08/10/24 Unknown History valsartan 80 mg tablet 80 mg PO DAILY 06/18/21 08/10/24 Unknown History Allergies Allergy/AdvReac Type Severity Reaction Status Date / Time codeine Allergy Mild Rash Verified 08/10/24 20:47 Penicillins Allergy Mild Vomiting Verified 08/10/24 20:47 acetaminophen (From Vicodin) Allergy Unknown Nausea and Verified 08/10/24 20:47 Vomiting banana Allergy Unknown Rash Verified 08/10/24 20:47 hydrocodone (From Vicodin) Allergy Unknown Nausea and Verified 08/10/24 20:47 Vomiting Review of Systems Review of Systems: All systems reviewed & are unremarkable except as noted in HPI and below PMFSH Past Medical History Medical History Posterior calcaneal exostosis Achilles tendinitis of both lower extremities Blood in stool GERD (gastroesophageal reflux disease) Colitis Family History Family History Other Arthritis Asthma Cerebrovascular accident Diabetes mellitus HLD (hyperlipidemia) Social History Social History Smoking packs per day: 0.25 Smoking cigarettes per day: 5.0 Years smoked: 20 Smoking pack-years: 5.00 Smoking status: Current every day smoker Tobacco type: cigarettes Alcohol intake: never Substance use: never Substance use type: does not use Occupation/Education: retired Gender identity (if verbalized by the patient): Female Exam Narrative: General appearance: Well-developed, well-nourished Skin: Normal color Head: Normocephalic, nontraumatic Eyes: Clear conjunctiva ENT: Oropharynx normal, ears normal, nose normal Neck: Supple, nontender Chest and respiratory: Airway patent, Diminution of air entry bilaterally, few scattered rhonchi and wheezing bilaterally, labored breathing Heart: Regular rate/rhythm Abdomen: Soft, nontender, no organomegaly, quiet bowel sounds Vascular: Normal peripheral pulses, normal capillary refill. Musculoskeletal: Normal range of motion, nontender back Neurologic: Alert and oriented ?3, HUMAN RESOURCES OPERATIONS DIRECTOR is normal as tested, no gross motor deficit Course Vital Signs Vital signs: Vital Signs Temperature 36.8 C 08/10/24 20:37 Pulse Rate 104 H 08/10/24 20:37 Respiratory Rate 32 H 08/10/24 20:37 Blood Pressure 151/85 H 08/10/24 20:37 Pulse Oximetry 69 L 08/10/24 20:37 Oxygen Delivery Room Air 08/10/24 20:37 Temperature 36.8 C 08/10/24 20:37 Pulse Rate 65 08/10/24 20:54 Respiratory Rate 32 H 08/10/24 20:37 Blood Pressure 151/85 H 08/10/24 20:37 Pulse Oximetry 96 08/10/24 20:54 Oxygen Delivery Nasal Cannula 08/10/24 20:54 Oxygen Flow Rate 4 08/10/24 20:54 MDM - SOB/Dyspnea MDM Narrative Medical decision making narrative: patient presents with shortness of breath and productive cough Vital sign showing heart rate of 104, respiratory rate 32, oxygenation on room air 69%. Physical examination showing labored breathing, diminution of air entry bilaterally, scattered rhonchi and wheezing bilaterally Differential diagnosis include upper respiratory viral infection, COPD exacerbation, bronchitis, pneumonia, pulmonary embolism, congestive heart failure Blood workup today includes CBC, CMP, troponin, BNP showed NO SIGNIFICANT ABNORMALITY ABG ON ROOM AIR SHOWED 92.9% SATURATION CHEST X-RAY SHOWED MULTIFOCAL INFILTRATION RESPIRATORY PANEL CAME BACK POSITIVE FOR INFLUENZA A ADMIT TO HOSPITALIST DIAGNOSIS HYPOXIA, PNEUMONIA, INFLUENZA A, COPD EXACERBATION PATIENT'S SYMPTOMS STARTED 3 DAYS AGO, TAMIFLU IS NOT INDICATED AT THIS TIME Differential Diagnosis Differential diagnosis: Likely other ( ABOVE) Medical Records Attestation: I reviewed the patient's medical records. Lab Data Attestation: I reviewed the patient's lab results. 08/10/24 20:44 08/10/24 20:44 Labs: Lab Results 08/10/24 08/10/24 Range/Units 20:44 20:44 WBC 6.9 (4.8-10.8) K/mm3 RBC 4.83 (4.20-5.40) M/mm3 Hgb 15.0 H (11.7-13.8) g/dL Hct 46.0 H (35.0-42.0) % MCV 95.2 (78.0-102.0) fL MCH 31.1 H (27.0-31.0) pg MCHC 32.6 (32-36) g/dL RDW 12.9 (11.6-14.4) % Plt Count 131 L (150-420) K/mm3 MPV 10.1 (9.2-11.8) fl Immature Gran % (Auto) 0.4 H (0.0-0.0) % Neut % (Auto) 75.9 H (50.0-70.0) % Lymph % (Auto) 12.3 L (18.0-42.0) % Metcalfe % (Auto) 10.7 (2.0-11.0) % Eos % (Auto) 0.6 L (1.0-6.0) % Baso % (Auto) 0.1 (0.0-1.0) % Lymph # (Auto) 0.84 L (1.10-4.50) K/mm3 Metcalfe # (Auto) 0.73 (0.10-0.90) K/mm3 Eos # (Auto) 0.04 (0.02-0.50) K/mm3 Baso # (Auto) 0.01 (0.00-0.10) K/mm3 Abs Immat Gran (auto) 0.03 H (0.00-0.00) K/mm3 Absolute Neuts (auto) 5.20 (1.70-7.20) K/mm3 Absolute Nucleated RBC 0.00 (0.00-0.00) K/mm3 Nucleated RBC % 0.0 (0-0.0) % % Immature Plt Fraction 2.9 (1.0-7.0) % PT 10.3 (9.50-12.1) Seconds INR 0.9 APTT 25.8 (23.9-30.70) Sec Sodium 135 L (136-145) mmol/L Potassium 3.8 (3.5-5.1) mmol/L Chloride 97 L (98-108) mmol/L Carbon Dioxide 32 (21-32) mmol/L Anion Gap 6 (4-12) mmol/L BUN 16 (7-18) mg/dL Creatinine 0.83 (0.55-1.02) mg/dL Estim Creat Clear Calc 60 ml/min Estimated GFR > 60 (59 - ) Glucose 173 H (70-99) mg/dL Calculated Osmolality 285 (285-295) mOsm/kg Lactic Acid 0.9 (0.4-2.0) mmol/L Calcium 8.7 (8.5-10.1) mg/dL Magnesium 1.9 (1.8-2.4) mg/dL Total Bilirubin 0.5 (0.00-1.00) mg/dL AST 37 (15-37) U/L ALT 49 (14-59) U/L Alkaline Phosphatase 59 (46-116) U/L Troponin I 5.2 (0.00-60.4) ng/L NT-Pro-B Natriuret Pep Cancelled 156 H Total Protein 7.5 (6.4-8.2) g/dL Albumin 3.0 L (3.4-5.0) g/dL Influenza A (RT-PCR) Pending Influenza B (RT-PCR) Pending RSV (RT-PCR) Pending SARS-CoV-2 RNA (RT-PCR) Pending ABG Data ABG results: 08/10/24 20:44 Puncture Site Right radial ABG pH 7.37 ABG pCO2 45.1 H ABG pO2 67.0 L ABG HCO3 25.3 ABG O2 Saturation 92.9 L ABG Base Excess -0.3 L Oxyhemoglobin 90.8 L O2 Delivery Device Room air O2 Liters/Min 0.0 Imaging Data Radiologist's impression: Impressions Chest X-Ray 08/10/24 20:57 IMPRESSION: Multifocal infiltrates, as detailed above. Critical Care Time Critical Care Time Critical Care Time: No Discharge Plan Discharge Clinical Impression: Influenza A, Pneumonia, COPD exacerbation, Tobacco abuse Patient Disposition: Still a Patient Condition: Stable Additional Instructions: ADMIT TO HOSPITALIST Patient Language: Belarusian Prescriptions: No Action ergocalciferol (vitamin D2) 1,250 mcg (50,000 unit) capsule 50,000 unit PO MONTHLY levothyroxine 175 mcg tablet 175 mcg PO DAILY valsartan 80 mg tablet 80 mg PO DAILY Follow-up/Referrals: Iram,MD Jame [Primary Care Provider] -
--- NOTE | 2024-08-10 20:31 | ECG_ITS ---
Test Date: 2024-08-10 23:53:40 Measurements Intervals [place] Rate: 82 P: 60 AK: 134 QRS: 42 QRSD: 76 T: 94 QT: 381 QTc: 446 Interpretive Statements SINUS RHYTHM BASELINE ARTIFACT- I, III, AVR, AVL, AVF, V1-V6 NORMAL ECG No previous ECG available for comparison Electronically Signed On 08-11-2024 07:11:32 MOLDER [employer]AC[employer]UM by Daryl Pastrana D.O.
[2024-08-10 20:37] VITALS: BP 151/85; PULSE 104; RESP 32; TEMP 36.8; O2SAT 69
--- OUTSIDE RECORDS SUMMARY | 2024-08-10 20:51 | XMS_ITS ---
Author Name Maeve Benitez Address [address] [address] [facility], Address [address] [address] Care Team Providers Care Assistant Grocery Name Role Phone Emmanuel Maeve Primary Care Physician Unavailab le Maeve [...] Not Entered 2020 208 Pneumovax 05/30/20 21 [employer] MSD PNEUMOVAX 23 [id number] [...] Start Date AETNA - G1973 AetnaMediPremi erPPO-CAP [id number] N/A Dual/Rev Cycle Use Only Dual/Rev Cycle Use Only Dual [id number] N/A Medicare - [place] Medicare Part B - [facility] [id number] N/A YUSUF Financial Assistance 100 [id number] Friday, 2021 [facility] ([facility]) - G2315 UHCAdvnt PPO JAIMIE Scott [id number] N/A Medicaid - [place] Medicaid - [facility] [id number] N/A History of Encounters Visit Date Visit Type Provider 05/30/2021 In Office Visit Saul lim MD 04/30/2021 In Office Visit Saul lim MD
--- OUTSIDE RECORDS SUMMARY | 2024-08-10 20:51 | XMS_ITS | Clinical Summary ---
Author Organization [facility] Address [address] [place] [address] Care Team Providers Care Director Shopper Marketing Name Role Phone Rosales Doe MD Unavailable [phone] Flaquito Simms MD Primary Care Provider [phone] Allergies Active Allergy Reactions Criticality Noted Date Comments Codeine Vomiting Low 03/19/2018 Penicillins Swelling Medium 03/19/2018 Hydrocodone-Acetaminophen Vomiting Low 03/19/2018 Medications acetaminophen 500 mg capsule Take 2 capsules (1,000 mg total) by mouth 3 (three) times a day as needed for pain or headaches. 30 tablet 03/20/2018 Active levothyroxine (SYNTHROID, LEVOTHROID) 200 mcg tablet Take 1 tablet (200 mcg total) by mouth tableau report developer before breakfast. 30 tablet 03/21/2018 Active valsartan [...] 11/08/2022 Assessment & Plan (07/04/2023 11:07 AM STRAIN TECHNICIAN): Controlled with valsartan plus relaxation techniques. Check echo. Assessment & Plan (11/08/2022 11:11 AM CDT): Well controlled. Continue valsartan 80 mg daily. Chest pain 01/28/2020 Heart murmur 01/28/2020 Assessment & Plan (07/04/2023 11:06 AM STRAIN TECHNICIAN): Check echo. Assessment & Plan (11/08/2022 11:12 [...] on file Legal Sex Female 6:03 AM STRAIN TECHNICIAN Gender Identity Not on file Sexual Orientation Not on file Obstetrics History Last Filed Vital Signs Vital Sign Reading Time Taken Comments Blood Pressure 124/72 07/04/2023 10:21 AM STRAIN TECHNICIAN Large Adult Cuff Pulse 74 07/04/2023 10:21 AM STRAIN TECHNICIAN Temperature 36.9 C (98.5 F) 02/11/2020 9:27 AM CDT Respiratory Rate 16 07/04/2023 10:2 1 AM STRAIN TECHNICIAN Oxygen Saturation 89% 07/04/2023 10: 21 AM STRAIN TECHNICIAN Inhaled Oxygen Concentration - - Weight 84.9 kg (187 lb 3.2 oz) 07/04/2023 10:21 AM STRAIN TECHNICIAN Height 163.2 cm (5' 4.25 ) 07/04/2023 1 0:21 AM STRAIN TECHNICIAN Body Mass Index 31.88 07/04/2023 10:21 AM STRAIN TECHNICIAN Plan of Treatment Health Maintenance Due Date [...] 2024 03/20/2018 Insurance [facility]ICARE [facility] AETNA [facility] [employer] Advance Directives For more information, please contact: [phone] * Full Code (Latest Code Status on File) Date Activated Date Inactivated Comments 03/20/2018 1:18 AM 03/20/2018 2:02 PM Care Teams Director Shopper Marketing Relationship Specialty [place] [address] [address] PCP - General Cardiology 07/30/21 [place] [address] [address] [address] Consulting Physician Endocrinology Diabetes & Metabolism 03/20/18
--- OUTSIDE RECORDS SUMMARY | 2024-08-10 20:51 | XMS_ITS | Referral Summary ---
Author Organization [facility] Address [address] [place] [address] Care Team Providers Care Server Programmer Name Role Phone Rosales Doe MD Unavailable [phone] Flaquito Simms MD Primary Care Provider [phone] Allergies Active Allergy Reactions Criticality Noted Date Comments Codeine Vomiting Low 03/19/2018 Penicillins Swelling Medium 03/19/2018 Hydrocodone-Acetaminophen Vomiting Low 03/19/2018 Medications acetaminophen 500 mg capsule Take 2 capsules (1,000 mg total) by mouth 3 (three) times a day as needed for pain or headaches. 30 tablet 03/20/2018 Active levothyroxine (SYNTHROID, LEVOTHROID) 200 mcg tablet Take 1 tablet (200 mcg total) by mouth ear pull machine operator before breakfast. 30 tablet 03/21/2018 Active valsartan [...] 11/08/2022 Assessment & Plan (07/04/2023 11:07 AM MEAT STRINGER): Controlled with valsartan plus relaxation techniques. Check echo. Assessment & Plan (11/08/2022 11:11 AM CDT): Well controlled. Continue valsartan 80 mg daily. Chest pain 01/28/2020 Heart murmur 01/28/2020 Assessment & Plan (07/04/2023 11:06 AM MEAT STRINGER): Check echo. Assessment & Plan (11/08/2022 11:12 [...] on file Legal Sex Female 6:03 AM MEAT STRINGER Gender Identity Not on file Sexual Orientation Not on file Last Filed Vital Signs Vital Sign Reading Time Taken Comments Blood Pressure 124/72 07/04/2023 10:21 AM MEAT STRINGER Large Adult Cuff Pulse 74 07/04/2023 10:21 AM MEAT STRINGER Temperature 36.9 C (98.5 F) 02/11/2020 9:27 AM CDT Respiratory Rate 16 07/04/2023 10:2 1 AM MEAT STRINGER Oxygen Saturation 89% 07/04/2023 10: 21 AM MEAT STRINGER Inhaled Oxygen Concentration - - Weight 84.9 kg (187 lb 3.2 oz) 07/04/2023 10:21 AM MEAT STRINGER Height 163.2 cm (5' 4.25 ) 07/04/2023 1 0:21 AM MEAT STRINGER Body Mass Index 31.88 07/04/2023 10:21 AM MEAT STRINGER Plan of Treatment Not on file Insurance MEDICARE [facility] MEDICARE Address: [address] [address] [place] [address] [facility] ADVANTRA Advance Directives For more information, please contact: [phone] * Full Code (Latest Code Status on File) Date Activated Date Inactivated Comments 03/20/2018 1:18 AM 03/20/2018 2:02 PM Care Teams Server Programmer Relationship Specialty [place] [address] [address] [facility] [address] [place] [address] PCP - General Cardiology 07/30/21 [place] [address] [address] [facility] [address] [place] [address] Consulting Physician Endocrinology Diabetes & Metabolism 03/20/18
--- OUTSIDE RECORDS SUMMARY | 2024-08-10 20:51 | XMS_ITS | CONTINUITY OF CARE DOCUMENT ---
Author Name lake bethea Address Unknown Organization [facility] Address [address] [facility] [address] [place] [address] Phone [phone] Care Team Providers Care Green Building Design Specialist Name Role Phone Shlely Jain MD Unavailable PROBLEMS Condition Status Date [...] Jain MD blood pressure, systolic 120 mm[Hg] Esla Jain MD pulse rate 76 /min Shelly [...] Payer name Policy type / Coverage type [facility] FAMILY [facility] Medicaid 1 [id number] TREATMENT PLAN Date Name Performer : H er updated medication list for this problem includes: Synthroid 175 Mcg Tabs (Levothyroxine sodium) ..... One tab. daily Orders: S TR - Nuclear (03789) C omplete Echo (CPT-60143) Shu Villalpando : O rders: S TR - Nuclear (03703) C omplete Echo (CPT-68255) Shu Villalpando : H er updated medication list for this problem includes: Lipitor 10 Mg Tabs (Atorvastatin calcium) ..... One tab. daily Orders: S TR - Nuclear (56454) C omplete Echo (CPT-09550) Shu Villalpando : O rders: S TR - Nuclear (18194) C omplete Echo (CPT-95216) Shu Kwasi : O rders: S TR - Nuclear (15850) C omplete Echo (CPT-90899) Shu Villalpando : H er updated medication list for this problem includes: Hydrochlorothiazide 12.5 Mg Caps (Hydrochlorothiazide) ..... One tab. daily Orders: S TR - Nuclear (04484) C omplete Echo (CPT-33382) BP today: 120/74 P rior BP: 120/70 (05/03/2014) Shu Kwasi : H er updated medication list for this problem includes: Synthroid 175 Mcg Tabs (Levothyroxine sodium) ..... One tab. daily Orders: E KG (CPT-86240) Shelly Jain MD : H er updated medication list for this problem includes: Synthroid 175 Mcg Tabs (Levothyroxine sodium) ..... One tab. daily Orders: E KG (CPT-43016) Shelly Jain MD Shelly Monte : H er updated medication list for this problem includes: Hydrochlorothiazide 12.5 Mg Caps (Hydrochlorothiazide) ..... One tab. daily Orders: E KG (CPT-30047) Shelly Jain MD Date Name Complete Echo STR - Nuclear HISTORY OF PROCEDURES Procedure Date Procedure Name Provider Procedure Notes S tatus EKG Shelly Jain MD complet ed
--- OUTSIDE RECORDS SUMMARY | 2024-08-10 20:51 | XMS_ITS | Clinical Summary ---
Author Organization [facility] Address [address] [place] [address] Care Team Providers Care Editor News Name Role Phone Jame Walden MD Primary Care Provider [phone] Allergies Active Allergy Reactions Criticality Noted Date Comments Banana Swelling 04/21/2020 Codeine Rash Low 04/14/2020 Penicillins Rash Low 04/14/2020 Medications levothyroxine (SYNTHROID) 175 MCG tablet Active vitamin D2, ergocalciferol, 05633 UNITS capsule Take 50,000 Units by mouth [...] Department Care Team Description 07/28/2024 10:44 AM INFORMATION SECURITY ARCHITECT - 07/28/2024 11:59 PM INFORMATION SECURITY ARCHITECT Hospital Encounter [facility] [address] [place] [address] Ying Hale NP Discharge Disposition: Home or [...] Sex Assigned at Female 07/28/2024 10:43 AM INFORMATION SECURITY ARCHITECT Legal Sex Female 8:50 PM CDT Gender [...] st Contact Info) Description 08/12/2024 6:30 AM INFORMATION SECURITY ARCHITECT Appointment [facility] [address] [place] [address] Ying Hale, HUYEN [address] [place] [address] [phone] Health Maintenance Due Date Last Done Comments [...] JO VIOLA DIGI Routine 07/28/2024 12:23 PM INFORMATION SECURITY ARCHITECT Encounter for screening mammogram for malignant neoplasm of breast BONE DENSITY/DEXA Routine 07/28/2024 11: 32 AM INFORMATION SECURITY ARCHITECT Post-menopausal from Last 3 Months Results * MG SCREENING W JO VIOLA DIGI (07/28/2024 12:23 PM INFORMATION SECURITY ARCHITECT) Anatomical Region Laterality Modality Breast Bilateral Mammography 07/28/2024 11:4 9 AM INFORMATION SECURITY ARCHITECT Impressions 07/28/2024 11:49 AM INFORMATION SECURITY ARCHITECT IMPRESSION: No suspicious change since the previous exams. Recommendation: 1: Routine Screening Bilateral in 1 Year Assessment: ACR BI-RADS 2 - BENIGN FINDING(S) Ordered By: YING HLAE Interpreted By: Willy Mosley MD, 07/28/2024 11:49 AM Narrative 07/28/2024 11:49 AM INFORMATION SECURITY ARCHITECT [address] [place] [address] Examination: Digital screening mammogram with CAD. [...] year would seem adequate. us Ying Hale [facility] MAMMO Fin al Result * BONE DENSITY/DEXA (07/28/2024 11:32 AM INFORMATION SECURITY ARCHITECT) Anatomical Region Laterality Modality Bone Bone Density 07/28/2024 8:36 PM INFORMATION SECURITY ARCHITECT Impressions 07/28/2024 8:40 PM INFORMATION SECURITY ARCHITECT Impression: Osteopenia in both hips in normal measurements in the lumbar spine. Ordered By: YING HALE Interpreted By: Corby Chamberlain MD, 07/28/2024 8:36 PM Narrative 07/28/2024 8:40 PM INFORMATION SECURITY ARCHITECT [address] [place] [address] 07/28/2024 Examination: DEXA Bone densitometry Clinical history: [...] Procedure Note Corby Chamberlain MD - 07/28/[address] [place] [address] 07/28/2024 Examination: DEXA Bone densitometry Clinical history: [...] MD, 07/28/2024 8:36 PM us Ying Hale KNIT TUBING DYER DEXA Fin al Result from Last 3 Months Insurance MEDICAID AETNA Care Teams Editor News Relationship Specialty Start Date End Date Jame Walden MD [address] [place] [address] PCP - General FAMILY PRACTICE 08/19/23
--- OUTSIDE RECORDS SUMMARY | 2024-08-10 20:51 | XMS_ITS | Continuity of Care Document ---
Author Organization [facility] Address [address] [facility] [address] [place] [address] Phone Care Team Providers Care Surveillance Officer Name Role Phone Anastasia Pop Unavailable Unavailable Advance Directives Directive Yes / No Effective Date File Name No Information Encounters Encounter Description Practice Location Reason(s) For Visit Diagnoses Date Provider Providers Copied on Encounter [facility], [address] [place], [place], [id number], [place] tel:[phone] SEC [facility] No Information [address]. [address] [facility] , [address], [place], [address], [place]. tel:[phone] Family History Family Member Type Diagnosis Age At Onset No Information Payers Payer name Insurance type Covered constitution party ID Authoriza tiananya(s) [employer] SOI CI [id number] Social History Type Description Quantity Date Captured [...]
[2024-08-10 20:53] LABS: Basophils Absolute Auto 0.01 K/mm3 (0.00-0.10); Basophils Percent Auto 0.1 % (0.0-1.0); Eosinophils Absolute Auto 0.04 K/mm3 (0.02-0.50); Eosinophils Percent Auto 0.6 % (1.0-6.0); Immature Granulocyte Absolute 0.03 K/mm3 (0.00-0.00); Immature Granulocyte Percent A 0.4 % (0.0-0.0); Immature Platelet Fraction Pct 2.9 % (1.0-7.0); Lymphocytes Absolute Auto 0.84 K/mm3 (1.10-4.50); Lymphocytes Percent Auto 12.3 % (18.0-42.0); Mean Corpuscular HGB Conc 32.6 g/dL (32-36); Mean Corpuscular Hemoglobin 31.1 pg (27.0-31.0); Mean Corpuscular Volume 95.2 fL (78.0-102.0); Mean Platelet Volume 10.1 fl (9.2-11.8); Monocytes Absolute Auto 0.73 K/mm3 (0.10-0.90); Monocytes Percent Auto 10.7 % (2.0-11.0); Neutrophils Percent Auto 75.9 % (50.0-70.0); Platelet Count Result 131 K/mm3 (150-420); Red Blood Count 4.83 M/mm3 (4.20-5.40); Red Cell Distribution Width 12.9 % (11.6-14.4); White Blood Count 6.9 K/mm3 (4.8-10.8)
[2024-08-10 20:54] VITALS: PULSE 65; O2SAT 96
[2024-08-10 20:54] LABS: Base Excess ABG -0.3 mmol/L (0-2); HCO3 ABG 25.3 mmol/L (23-29); Oxygen Saturation ABG 92.9 % (95-97); Oxyhemoglobin 90.8 % (94-100); PCO2 ABG 45.1 mmHg (35-45); pH ABG 7.37 (7.35-7.45)
[2024-08-10 20:55] LABS: Device ROOM AIR; Modified Allen's Test Pass; Site Drawn RIGHT RADIAL
[2024-08-10 21:07] LABS: INR 0.9; Partial Thromboplastin Time 25.8 Sec (23.9-30.70); Prothrombin Time 10.3 Seconds (9.50-12.1)
[2024-08-10 21:11] LABS: Lactic Acid Reflex 0.9 mmol/L (0.4-2.0)
[2024-08-10] MEDS: methylPREDNISolone SOD SUCC 125 MG VIAL IV PUSH (21:13)
[2024-08-10 21:20] LABS: Alanine Aminotransferase 49 U/L (14-59); Alkaline Phosphatase 59 U/L (46-116); Anion Gap 6 mmol/L (4-12); Aspartate Amino Transferase 37 U/L (15-37); Bilirubin,Total 0.5 mg/dL (0.00-1.00); Blood Urea Nitrogen 16 mg/dL (7-18); Calcium 8.7 mg/dL (8.5-10.1); Carbon Dioxide 32 mmol/L (21-32); Chloride 97 mmol/L (98-108); Estimated CRCL calculation 60 ml/min; Estimated Glomerular Filt Rate > 60; Glucose 173 mg/dL (70-99); Magnesium 1.9 mg/dL (1.8-2.4); NT Pro B Type Natriuretic Pept 156 pg/mL (0-125); Osmolality Calculated 285 mOsm/kg (285-295); Potassium 3.8 mmol/L (3.5-5.1); Sodium 135 mmol/L (136-145); Total Protein 7.5 g/dL (6.4-8.2); Troponin I 5.2 ng/L (0.00-60.4)
[2024-08-10 21:34] LABS: SARS-CoV-2 RNA PCR Negative (Negative)
[2024-08-10 21:39] LABS: Influenza A QL RT-PCR Positive (Negative); Influenza B QL RT-PCR Negative (Negative); RSV RNA, RT-PCR Negative (Negative)
[2024-08-10 22:30] VITALS: BMI 30.4
[2024-08-10] MEDS: AZITHROMYCIN 500 MG/NS 250 ML 500 MG/250 ML BAG 250 MG IVPB (22:48)
[2024-08-10] MEDS: SODIUM CHLORIDE 0.9% IV 1,000 ML 100 ML IV CONT (22:48)
[2024-08-10 23:00] VITALS: O2SAT 91
--- NOTE | 2024-08-10 23:07 | ADMGEN ---
This patient, Lacy Toth, was admitted to 2nd Floor Room 208-1. Patient/family oriented to hospital policies and general routines including ID bracelet, bed and alarms, visiting hours, pain management, procedures, bathroom and other care routines, personal items, smoking policy, room service/diet, and visiting hours. Information on how to activate the Rapid Response Team has been discussed. Patient/Family are encouraged to report perceived risks to care and to ask questions if they do not understand what they are told or what they should do.
[2024-08-10 23:13] VITALS: PULSE 65; RESP 20; O2SAT 91
[2024-08-10] MEDS: IBUPROFEN 600 MG TABLET PO (23:44)
[2024-08-10 23:55] VITALS: PULSE 87; RESP 22; O2SAT 91
[2024-08-10] MEDS: IPRATROPIUM 0.5 MG/ALBUTEROL SULFATE 2.5 MG AMPUL.NEB 3 ML INHALATION (23:56)
[2024-08-11] VITALS (9 sets, daily range): BP systolic 126–150; BP diastolic 47–78; PULSE 74–88; RESP 18–20; TEMP 36.3–37.3; O2SAT 93–99
[2024-08-11] MEDS: IPRATROPIUM 0.5 MG/ALBUTEROL SULFATE 2.5 MG AMPUL.NEB 3 ML INHALATION ×3 (05:32→18:07)
[2024-08-11] MEDS: methylPREDNISolone SOD SUCC 40 MG VIAL IV PUSH ×3 (05:38→20:24)
[2024-08-11 08:40] LABS: Hematocrit 44.5 % (35.0-42.0); Hemoglobin 14.4 g/dL (11.7-13.8); Immature Platelet Fraction Pct 2.5 % (1.0-7.0); Mean Corpuscular HGB Conc 32.4 g/dL (32-36); Mean Corpuscular Hemoglobin 30.9 pg (27.0-31.0); Mean Corpuscular Volume 95.5 fL (78.0-102.0); Mean Platelet Volume 10.2 fl (9.2-11.8); Platelet Count Result 136 K/mm3 (150-420); Red Blood Count 4.66 M/mm3 (4.20-5.40); Red Cell Distribution Width 12.6 % (11.6-14.4); White Blood Count 6.2 K/mm3 (4.8-10.8)
[2024-08-11 08:53] LABS: Alanine Aminotransferase 53 U/L (14-59); Albumin Level 2.7 g/dL (3.4-5.0); Alkaline Phosphatase 50 U/L (46-116); Anion Gap 8 mmol/L (4-12); Aspartate Amino Transferase 33 U/L (15-37); Bilirubin,Total 0.4 mg/dL (0.00-1.00); Blood Urea Nitrogen 13 mg/dL (7-18); Calcium 8.8 mg/dL (8.5-10.1); Carbon Dioxide 32 mmol/L (21-32); Chloride 102 mmol/L (98-108); Estimated CRCL calculation 60 ml/min; Estimated Glomerular Filt Rate > 60; Glucose 208 mg/dL (70-99); Osmolality Calculated 300 mOsm/kg (285-295); Potassium 4.2 mmol/L (3.5-5.1); Sodium 142 mmol/L (136-145); Total Protein 7.1 g/dL (6.4-8.2)
[2024-08-11] MEDS: LEVOTHYROXINE SODIUM 100 MCG, LEVOTHYROXINE SODIUM 75 MCG 175 MCG PO (09:19)
[2024-08-11] MEDS: AZITHROMYCIN 250 MG TABLET 500 MG PO (09:19)
[2024-08-11] MEDS: VALSARTAN 80 MG TABLET PO (09:19)
[2024-08-11] MEDS: guaiFENesin 12 HR 600 MG TABCR 1200 MG PO ×2 (09:19→20:24)
[2024-08-11 09:57] LABS: Hemoglobin A1C 5.6 % (<5.7)
--- NOTE | 2024-08-11 15:33 | P.HP_ITS ---
H&P: HPI History of Present Illness Date/Time: 08/11/24 15:33 Chief Complaint: SOB Narrative: patient is a 69-year-old female who presented to the emergency department with worsening shortness of breath and overall generalized weakness with some nausea and vomiting. Patient with past medical history of COPD and current smoker, hypothyroidism and hypertension. Patient reports she began to have flu-like sy mptoms around 6 days ago prior to arrival however symptoms did not improve and she became extremely short of breath. In the emergency department patient was hypoxic on arrival with a oxygen saturation of 69% and was immediately placed on 4 L nasal cannula of supplemental oxygen at which time she recovered. chest x- ray did show multilobular infiltrates. patient had normal wbc's other labs unremarkable. Patient was then admitted to the medical unit for further evaluation and treatment of acute respiratory failure with hypoxia secondary to influenza and COPD exacerbation. Patient was initiated on antibiotic therapy to cover for any underlying CAP. Review of Systems Review of Systems: All systems reviewed & are unremarkable except as noted in HPI and below PMFSH Past Medical History Medical History COPD exacerbation Hypertension Posterior calcaneal exostosis Achilles tendinitis of both lower extremities Blood in stool GERD (gastroesophageal reflux disease) Colitis Family History Family History Other Arthritis Asthma Cerebrovascular accident Diabetes mellitus HLD (hyperlipidemia) Social History Social History Smoking packs per day: 0.25 Smoking cigarettes per day: 5.0 Years smoked: 20 Smoking pack-years: 5.00 Smoking status: Current every day smoker Tobacco type: cigarettes Second hand tobacco smoke exposure: Yes Alcohol intake: never Substance use: never Substance use type: does not use Do You Feel Safe in your Home?: Yes Lack of Transportation: No Lack of Food: Never True Current Housing: I Have Housing Concerned About Future Housing: No Difficulty Paying Gas/Electric Bills: No Difficulty Paying for Meds: No Currently Unemployed: No Education: High School Diploma/GED Difficulty w/ Childcare or Family Care: No Occupation/Education: retired Gender identity (if verbalized by the patient): Female Spiritual care concerns: No Meds Home Medications and Allergies Home Medications ?Medication ?Instructions ?Recorded ?Confirmed ?Type ergocalciferol (vitamin D2) 1,250 50,000 unit PO MONTHLY 05/11/20 08/10/24 History mcg (50,000 unit) capsule levothyroxine 175 mcg tablet 175 mcg PO DAILY 05/11/20 08/10/24 History valsartan 80 mg tablet 80 mg PO DAILY 06/18/21 08/10/24 History Allergies Allergy/AdvReac Type Severity Reaction Status Date / Time codeine Allergy Mild Rash Verified 08/10/24 20:47 Penicillins Allergy Mild Vomiting Verified 08/10/24 20:47 acetaminophen (From Vicodin) Allergy Unknown Nausea and Verified 08/10/24 20:47 Vomiting banana Allergy Unknown Rash Verified 08/10/24 20:47 hydrocodone (From Vicodin) Allergy Unknown Nausea and Verified 08/10/24 20:47 Vomiting Vital Signs Vital Signs - 24 hr 08/10/24 20:37 08/10/24 20:54 08/10/24 20:54 Temperature 98.2 F Pulse Rate 104 H 65 Respiratory Rate 32 H Blood Pressure 151/85 H Pulse Oximetry 69 L 96 Oxygen Delivery Room Air Nasal Cannula Oxygen Flow Rate 4 08/10/24 23:00 08/10/24 23:13 08/10/24 23:55 Temperature Pulse Rate 65 87 Respiratory Rate 20 22 H Blood Pressure Pulse Oximetry 91 91 91 Oxygen Delivery Nasal Cannula Oxygen Flow Rate 4 4 08/11/24 00:00 08/11/24 00:10 08/11/24 05:33 Temperature 99.2 F Pulse Rate 87 88 74 Respiratory Rate 20 20 20 Blood Pressure 150/78 H Pulse Oximetry 94 94 98 Oxygen Delivery Nasal Cannula Oxygen Flow Rate 2 4 4 08/11/24 05:42 08/11/24 08:00 08/11/24 08:00 Temperature 97.3 F L 97.3 F L Pulse Rate 76 79 79 Respiratory Rate 20 20 20 Blood Pressure 135/54 L 135/54 L Pulse Oximetry 99 94 94 Oxygen Delivery Room Air Nasal Cannula Oxygen Flow Rate 4 4 08/11/24 11:37 08/11/24 11:51 Temperature Pulse Rate 74 76 Respiratory Rate 18 18 Blood Pressure Pulse Oximetry 93 96 Oxygen Delivery Oxygen Flow Rate 2 2 Exam Narrative: * GENERAL: Alert and oriented x 3 pleasant female . No acute distress. * EYES: PERRLA. * HEENT: Moist mucous membranes. * LUNGS: Rhonchi auscultation bilaterally. No accessory muscle use. * CARDIOVASCULAR: Regular rate and rhythm. No murmur. No JVD. S1-S2 * ABDOMEN: Soft, non tenderness and non-distended. No palpable masses. Reports Nausea * EXTREMITIES: No edema. Non-tender * SKIN: No rashes or lesions. Skin warm, dry. * NEUROLOGIC: No focal neurological deficits. CN II-XII grossly intact * PSYCHIATRIC: Appropriate mood and affect. Good judgement and insight. H&P: Results Labs Labs: Short CBC 08/10/24 08/11/24 Range/Units 20:44 08:27 WBC 6.9 6.2 (4.8-10.8) K/mm3 Hgb 15.0 H 14.4 H (11.7-13.8) g/dL Hct 46.0 H 44.5 H (35.0-42.0) % Plt Count 131 L 136 L (150-420) K/mm3 BMP 08/10/24 08/11/24 20:44 08:27 Sodium 135 L 142 Potassium 3.8 4.2 Chloride 97 L 102 Carbon Dioxide 32 32 BUN 16 13 Creatinine 0.83 0.79 Glucose 173 H 208 H Calcium 8.7 8.8 Cardiac Enzymes 08/10/24 Range/Units 20:44 Troponin I 5.2 (0.00-60.4) ng/L Liver Function 08/10/24 08/11/24 Range/Units 20:44 08:27 Total Bilirubin 0.5 0.4 (0.00-1.00) mg/dL AST 37 33 (15-37) U/L ALT 49 53 (14-59) U/L Alkaline Phosphatase 59 50 (46-116) U/L Albumin 3.0 L 2.7 L (3.4-5.0) g/dL Imaging Chest x-ray: Radiologist's impression: CHEST RADIOGRAPH CLINICAL HISTORY: sob-low 02 stats . COMPARISON: None available TECHNIQUE: Single portable view of the chest. FINDINGS The cardiomediastinal silhouette is unremarkable. Alveolar infiltrates within the right upper left mid to lower lung field. The remainder of the lungs are clear. IMPRESSION: Multifocal infiltrates, as detailed above. Assessment and Plan Assessment and plan (1) Acute respiratory failure with hypoxia: Code(s): J96.01 - Acute respiratory failure with hypoxia Status: Acute Assessment and Plan: Patient with acute respiratory failure with hypoxia upon a arrival patient's oxygen saturation was 69% likely secondary to multifocal COPD exacerbation and recent influenza * Continue to wean supplemental oxygen as tolerated patient does not wear at home currently on 4L NC * recent diagnosis of Influenza A and HX of COPD * CXR bilateral infiltrates * CTA pending * Normal WBC * Dounebs * Mucinex * incentive spirometer * Also treating empirically for CAP (2) COPD exacerbation: Code(s): J44.1 - Chronic obstructive pulmonary disease with (acute) exacerbation Status: Acute Assessment and Plan: * Bronchodilators. * Chest x-ray reviewed * incentive spirometry while awake. * steroids initiated * azithromycin 500 x 1 day/250 daily * supplemental oxygen therapy to maintain oxygen 92% * Evaluation from home O2 if saturation less than 88% on room air. * Smoking cessation counseling done (3) Influenza A: Code(s): J10.1 - Influenza due to other identified influenza virus with other respiratory manifestations Status: Acute Assessment and Plan: * supportive care * patient out of the window for Tamiflu * tolerating oral intake will DC IV fluids * antiemetics * antipyretics * supplemental oxygen wean as tolerated (4) Pneumonia: Code(s): J18.9 - Pneumonia, unspecified organism Status: Acute Assessment and Plan: * Empirically treating bacterial vs viral PNA * Ceftriaxone/ azithromycin * incentive spirometer * antipyretics (5) Tobacco abuse: Code(s): Z72.0 - Tobacco use Status: Acute Assessment and Plan: patient reports she is smoking around 5 cigarettes a day she is attempting to quit smoking * encouraged smoking cessation * patient did not want nicotine patch at this time (6) Hypertension: Code(s): I10 - Essential (primary) hypertension Status: Acute Assessment and Plan: * BP reviewed and stable * resume patient's valsartan Plan Code status: Full code per patient DVT prophylaxis: Lovenox Stress ulcer prophylaxis: Protonix 40 daily PT/OT notes: ambulatory Disposition: patient continues admission for acute respiratory failure with hypoxia secondary to influenza, COPD exacerbation, possible pneumonia will continue to wean oxygen as tolerated if unable to wean oxygen will need home oxygen walk study prior to discharge. Quality VTE Prophylaxis VTE prophylaxis: pharmacologic ordered -Patient's previous records reviewed on admission -ER notes reviewed in detail on admission -discussed all findings and current treatment plan with patient/Family/POA -Consultations reviewed for recommendations -Patient's disposition for safe discharge discussed with shelter case manager Dictation performed by [employer] direct speech recognition software, therefore inspector grain mill products variants and typographical errors may occur. Hospitalist MIPS Advance Care Plan I have confirmed that the patient's Advanced Care Plan is present, code status is documented, or surrogate decision maker is listed in patient medical record.: Yes Medication Reconciliation I have utilized all available resources to obtain, update and review the patients current medications (includes all prescriptions, OTC, herbals, cannabis, and nutritional supplements).: Yes The patient is not eligible for med reconciliation; the patient is in a emergent medical situation where delaying treatment would jeopardize the patients health.: No
[2024-08-12] VITALS: BP 134/55; PULSE 86; RESP 17; TEMP 36.4; O2SAT 97
[2024-08-12 00:27] VITALS: PULSE 71; RESP 17; O2SAT 97
[2024-08-12] MEDS: IPRATROPIUM 0.5 MG/ALBUTEROL SULFATE 2.5 MG AMPUL.NEB 3 ML INHALATION ×2 (00:27→05:32)
[2024-08-12 05:34] VITALS: PULSE 62; RESP 16; O2SAT 95
[2024-08-12 05:45] VITALS: PULSE 76; RESP 16; O2SAT 98
[2024-08-12] MEDS: LEVOTHYROXINE SODIUM 100 MCG, LEVOTHYROXINE SODIUM 75 MCG 175 MCG PO (06:23)
[2024-08-12] MEDS: methylPREDNISolone SOD SUCC 40 MG VIAL IV PUSH (06:23)
[2024-08-12 08:00] VITALS: BP 124/68; PULSE 89; RESP 18; TEMP 36.5; O2SAT 94
[2024-08-12 08:34] LABS: Hematocrit 43.8 % (35.0-42.0); Mean Corpuscular Hemoglobin 30.8 pg (27.0-31.0); Mean Corpuscular Volume 96.3 fL (78.0-102.0); Mean Platelet Volume 10.1 fl (9.2-11.8); Platelet Count Result 153 K/mm3 (150-420); Red Blood Count 4.55 M/mm3 (4.20-5.40); Red Cell Distribution Width 12.9 % (11.6-14.4); White Blood Count 9.4 K/mm3 (4.8-10.8)
[2024-08-12 09:06] LABS: Alanine Aminotransferase 103 U/L (14-59); Albumin Level 2.8 g/dL (3.4-5.0); Alkaline Phosphatase 58 U/L (46-116); Anion Gap 10 mmol/L (4-12); Aspartate Amino Transferase 46 U/L (15-37); Bilirubin,Total 0.3 mg/dL (0.00-1.00); Blood Urea Nitrogen 16 mg/dL (7-18); Carbon Dioxide 31 mmol/L (21-32); Chloride 104 mmol/L (98-108); Estimated CRCL calculation 56 ml/min; Estimated Glomerular Filt Rate > 60; Glucose 188 mg/dL (70-99); Osmolality Calculated 306 mOsm/kg (285-295); Potassium 3.7 mmol/L (3.5-5.1); Sodium 145 mmol/L (136-145); Total Protein 6.8 g/dL (6.4-8.2)
[2024-08-12] MEDS: AZITHROMYCIN 250 MG TABLET 500 MG PO (09:26)
[2024-08-12] MEDS: VALSARTAN 80 MG TABLET PO (09:26)
[2024-08-12] MEDS: guaiFENesin 12 HR 600 MG TABCR 1200 MG PO (09:26)
--- NOTE | 2024-08-12 09:44 | P.DS_ITS ---
DS: Admitting Diagnosis Discharge Date 08/12/2024 Admitting Diagnosis acute respiratory failure with hypoxia secondary to influenza and COPD exacerbation DS: Discharge Diagnosis Discharge Diagnosis (1) Acute respiratory failure with hypoxia: Code(s): J96.01 - Acute respiratory failure with hypoxia Status: Acute Assessment and Plan: Patient with acute respiratory failure with hypoxia upon a arrival patient's oxygen saturation was 69% likely secondary to multifocal COPD exacerbation and recent influenza * azithromycin x3 more doses * Mucinex * incentive spirometer (2) COPD exacerbation: Code(s): J44.1 - Chronic obstructive pulmonary disease with (acute) exacerbation Status: Acute Assessment and Plan: * steroids x3 more days * azithromycin 500 x3 more days * Smoking cessation counseling done (3) Influenza A: Code(s): J10.1 - Influenza due to other identified influenza virus with other respiratory manifestations Status: Acute Assessment and Plan: * supportive care * patient out of the window for Tamiflu * antiemetics * antipyretics (4) Pneumonia: Code(s): J18.9 - Pneumonia, unspecified organism Status: Acute Assessment and Plan: * azithromycin * incentive spirometer * antipyretics (5) Tobacco abuse: Code(s): Z72.0 - Tobacco use Status: Acute Assessment and Plan: patient reports she is smoking around 5 cigarettes a day she is attempting to quit smoking * encouraged smoking cessation * patient did not want nicotine patch at this time (6) Hypertension: Code(s): I10 - Essential (primary) hypertension Status: Acute Assessment and Plan: * BP reviewed and stable * resume patient's valsartan Plan Disposition: Discharge to home DS: Summary Hospital Course Reason for hospitalization: acute respiratory failure with hypoxia secondary to influenza and COPD exacerbation Hospital Course: patient is a 69-year-old female who presented to the emergency department with worsening shortness of breath and overall generalized weakness with some nausea and vomiting. Patient with past medical history of COPD and current smoker, hypothyroidism and hypertension. Patient reports she began to have flu-like symptoms around 6 days ago prior to arrival however symptoms did not improve and she became extremely short of breath. In the emergency department patient was hypoxic on arrival with a oxygen saturation of 69% and was immediately placed on 4 L nasal cannula of supplemental oxygen at which time she recovered. chest x- ray did show multilobular infiltrates. patient had normal wbc's other labs unremarkable. Patient was then admitted to the medical unit for further evaluation and treatment of acute respiratory failure with hypoxia secondary to influenza and COPD exacerbation. Patient was initiated on antibiotic therapy to cover for any underlying CAP. upon admission to the medical unit patient was transitioned to oral azithromycin and steroids for COPD exacerbation as well as supportive care for influenza a. patient was continued on DuoNebs, Mucinex and wean oxygen as tolerated. CTA was performed and PE ruled out did show bilateral infiltrates. following day patient was on room air in no acute respiratory distress reported she was able to tolerate oral intake with no nausea or vomiting and remained afebrile labs reviewed unremarkable and vital stable overall improvement. Patient had no complaints and was feeling close to her baseline patient was then discharged home and can complete her azithromycin and steroids x3 days. Patient acknowledge and agreed with discharge plan. Status at Discharge Functional status at discharge: independent ambulation Time Spent with Patient Time attestation: Total time spent providing and/or coordinating discharge services: Time spent: Greater than 30 minutes Exam Narrative: * GENERAL: Alert and oriented x 3 pleasant female . No acute distress. * EYES: PERRLA. * HEENT: Moist mucous membranes. * LUNGS: Clear auscultation bilaterally. No accessory muscle use. * CARDIOVASCULAR: Regular rate and rhythm. No murmur. No JVD. S1-S2 * ABDOMEN: Soft, non tenderness and non-distended. No palpable masses. Reports Nausea * EXTREMITIES: No edema. Non-tender * SKIN: No rashes or lesions. Skin warm, dry. * NEUROLOGIC: No focal neurological deficits. CN II-XII grossly intact * PSYCHIATRIC: Appropriate mood and affect. Good judgement and insight. DS: Data Data Completed and Pending Labs on day of discharge: Labs from last 24 hours 08/12/24 08/11/24 08:17 08:26 WBC 9.4 RBC 4.55 Hgb 14.0 H Hct 43.8 H MCV 96.3 MCH 30.8 MCHC 32.0 RDW 12.9 Plt Count 153 MPV 10.1 Sodium 145 Potassium 3.7 Chloride 104 Carbon Dioxide 31 Anion Gap 10 BUN 16 Creatinine 0.85 Estim Creat Clear Calc 56 Estimated GFR > 60 Glucose 188 H Hemoglobin A1c 5.6 Calculated Osmolality 306 H Calcium 9.0 Total Bilirubin 0.3 AST 46 H ALT 103 H Alkaline Phosphatase 58 Total Protein 6.8 Albumin 2.8 L Imaging Radiologist's impression: EXAMINATION: CTA chest PE protocol DATE: 08/11/2024 15:57 INDICATION: Hypoxia. Shortness of breath. TECHNIQUE: Computed tomography angiography (CTA) of the chest was performed with 100 mL Omnipaque-350 intravenous contrast timed to evaluate the pulmonary arteries. Coronal maximum intensity projection 3D-reconstructions were created by the technologist. Automated exposure control and iterative reconstruction technique were employed. The dose-length product was 271.03 mGy-cm. COMPARISON: Chest single view 08/10/2024 FINDINGS: There are scattered areas of mild atelectasis in the lungs. There are scattered groundglass opacities in the lungs bilaterally. There are tree-in-bud opacities in right upper lobe. A calcified left lung nodule and calcified left hilar and mediastinal lymph nodes are consistent with old granulomatous disease. No pleural effusion. The heart size is normal. No pericardial effusion. There is mild mediastinal lymphadenopathy, likely reactive. There is a 17 mm cyst in the liver. There is an 11 mm mass in left adrenal gland. There is no pulmonary embolus. There is a small sliding hiatal hernia. There is mild thoracic spondylosis. IMPRESSION: 1. No pulmonary embolus. 2. Multifocal lung disease, consistent with pneumonia. 3. 11 mm mass in left adrenal gland. In the absence of known malignancy, this finding is likely an adenoma. Discharge Plan Discharge Attending physician on discharge: Ck Lehman Discharging Clinician: Shu oMrgan Anticipated Discharge Date/Time: 08/12/24 09:37 Patient Disposition: Home, Self-Care Activity: may shower and as tolerated Diet: heart healthy Discharge Instructions: Influenza/COPD exacerbation * I have prescribed Azithromycin please complete as prescribed even if feeling better * I have also prescribed 3 days prednisone * continue to use your incentive spirometer * acetaminophen for pain, aches, fever * may also use Mucinex OTC * advance diet as tolerated * I encouraged immediate smoking cessation * if you develop worsening shortness of breath and respiratory distress please seek medical attention How can you care for yourself at home? ? Keep track of any new symptoms or changes in your symptoms. ? Rest until you feel better. ? Be safe with medicines. Take your medicines exactly as prescribed. Call your doctor if you think you are having a problem with your medicine. ? Do not drive after taking a prescription pain medicine. ? Ensure to follow-up with primary care physician as indicated and provide updated medication list provided to you at discharge. When should you call for help? Call 911 anytime you think you may need emergency care. For example, call if: ? You passed out (lost consciousness). Call your doctor now or seek immediate medical care if: ? You have new symptoms like fever, difficulty breathing, Chest pain, vomiting, or rash. ? You have new or different pain. ? You are confused and are having trouble thinking clearly. ? Your symptoms are getting worse. Watch closely for changes in your health, and be sure to contact your doctor if: ? You do not get better as expected. Patient Instructions: Antibiotic Form, How to Stop Smoking (DC), Influenza (DC), COPD (Chronic Obstructive Pulmonary Disease) (DC), Chronic Lung Disease and Infection Prevention (DC) Patient Language: Cambodian Stand Alone Forms: General Discharge Information Follow-up/Referrals: Krishna,MD Jame [Primary Care Provider] - 3 Weeks Discharge Medications: New azithromycin [Zithromax] 250 mg Tablet 500 mg PO DAILY Qty: 6 0RF prednisone 20 mg tablet 40 mg PO DAILY Qty: 6 0RF Continued ergocalciferol (vitamin D2) 1,250 mcg (50,000 unit) capsule 50,000 unit PO MONTHLY levothyroxine 175 mcg tablet 175 mcg PO DAILY valsartan 80 mg tablet 80 mg PO DAILY Date of admission: 08/10/24 21:54 Primary Care Provider: KrishnaJame Admitting Provider: Ck Lehman Attending physician on admission: Shu Morgan Condition: Stable Quality VTE Prophylaxis VTE prophylaxis: pharmacologic ordered -Patient's previous records reviewed on admission -ER notes reviewed in detail on admission -discussed all findings and current treatment plan with patient/Family/POA -Consultations reviewed for recommendations -Patient's disposition for safe discharge discussed with special education case manager Dictation performed by [employer] direct speech recognition software, therefore engineering tech variants and typographical errors may occur. Hospitalist MIPS Heart Failure (Exclusion) Patient has history of Heart Transplant or Left Ventricular Assistive Device?: No IF YES, STOP HERE Heart Failure (Qualifier) Patient has current or prior documentation of LVEF less than or equal to 40%, or mod/servere depressed LVSF?: No IF NO, STOP HERE
--- NOTE | 2024-08-12 11:10 | PC.NURSE ---
Discharge instructions reviewed with patient.Verbalized understanding. Patient taken off floor per wheelchair.
--- NOTE | 2024-08-13 10:28 | PC.NURSE ---
Discharge call back completed, doing good today, no questions regarding dc instructions
== END 2024-08-12 11:10 | disposition home or self-care (01) ==
LOC: CHSED 21:54 → CHS2ND 22:16
PROVIDERS: Admitting Provider Internal Medicine; Emergency Provider Emergency Medicine; PCP Family Medicine; Visit Provider Nurse Practitioner Family
DX: J96.01 Acute respiratory failure with hypoxia (principal); J10.00 Influenza due to other identified influenza virus with unspecified type of pneumonia; J44.0 Chronic obstructive pulmonary disease with (acute) lower respiratory infection; J44.1 Chronic obstructive pulmonary disease with (acute) exacerbation; I10 Essential (primary) hypertension; E03.9 Hypothyroidism, unspecified; K21.9 Gastro-esophageal reflux disease without esophagitis; F17.210 Nicotine dependence, cigarettes, uncomplicated; Z20.822 Contact with and (suspected) exposure to COVID-19; Z79.899 Other long term (current) drug therapy
CPT/HCPCS: 36415; 36600; 71045; 71275; 80053; 82805; 83036; 83605; 83735; 83880; 84484; 85025; 85027; 85055; 85610; 85730; 87040; 87637; 93005; 94640; 96361; 96365; 96368; 96375; 96376; 99285; A9270; G0378; J0456; J0696; J2919; J7030; Q9967